=== PATIENT | female | born 1945 | race Caucasian/White ===

== ENCOUNTER 2016-10-15 17:22 | Observation (INO) | payer MEDICARE, OTHER ==
[~2016-10-15] VITALS: Ht 157.5 cm; Wt 103.8 kg
[2016-10-15 18:39] LABS: BASO % 0.3 % (0.0-2.0); EOS % 0.4 % (0-4.0); GRAN # 9.5 (1.4-6.5); GRAN % 85.5 % (42.2-75.2); HEMATOCRIT 28.8 % (37.0-47.0); HEMOGLOBIN 9.3 g/dl (12.5-16.0); LYMPH # 0.7 (1.2-3.4); LYMPH % 5.9 % (20.0-51.0); MEAN CELL VOLUME 92 fl (80.0-100.0); MEAN CORPUSCULAR HEMOGLOBIN 30 pg (27.0-31.0); MEAN CORPUSCULAR HGB CONC 32 g/dl (33.0-37.0); MEAN PLATELET VOLUME 10.2 fl (7.4-10.4); MONO # 0.7 (0.1-0.6); MONO % 6.6 % (1.7-9.3); PLATELET COUNT 143 K/mm3 (130-400); RED BLOOD COUNT 3.14 M/mm3 (4.10-5.30); REDCELL DISTRIBUTION WIDTH-CV 15.9 % (11.5-14.5); WHITE BLOOD COUNT 11.1 K/mm3 (4.8-10.8)
[2016-10-15 19:00] LABS: ADJUSTED CALCIUM 9.1 mg/dL (8.4-10.2); ALBUMIN 3.3 gm/dL (3.5-5.0); BILIRUBIN,TOTAL 1.4 mg/dL (0.0-1.0); CALCIUM 8.5 mg/dL (8.4-10.2); CREATININE, serum 1.47 mg/dL (0.52-1.25); POTASSIUM 3.3 mmol/L (3.4-5.0); TOTAL PROTEIN 6.4 gm/dL (6.4-8.2)
[2016-10-15 19:25] LABS: INR 2.2 (0.8-3.0); PROTHROMBIN TIME 24.6 SECONDS (9.7-12.8)
[2016-10-15 19:27] LABS: PARTIAL THROMBOPLASTIN TIME 41.2 SECONDS (26.0-37.0)
[2016-10-15] MEDS ORDERED: JANUVIA50 MG PO ×2 (20:04→20:47)
[2016-10-15] MEDS ORDERED: SYNTHROID 0.10.15 MG PO (20:04)
[2016-10-15] MEDS ORDERED: PERFOROMIS20 MCG/2 M IH (20:05)
[2016-10-15] MEDS ORDERED: ZOCOR 40MG40 MG PO (20:05)
[2016-10-15] MEDS ORDERED: COUMADIN 5MG5 MG/TAB PO (20:06)
[2016-10-15] MEDS ORDERED: LASIX 40MG TABL40 MG PO (20:39)
[2016-10-15] MEDS ORDERED: CARDIZEM CD 24240 MG PO (20:39)
[2016-10-15] MEDS ORDERED: NORCO 325 MG-51 TAB PO (20:40)
[2016-10-15] MEDS ORDERED: DOXYCYCLINE 50M50 MG PO (20:47)
[2016-10-15] MEDS ORDERED: AMITRIPTYLINE H10 M1 PO (20:48)
[2016-10-15] MEDS ORDERED: GLUCOTROL 5M5 MG/TAB PO (20:50)
[2016-10-15] MEDS ORDERED: DITROPAN XL 5MG5 M1 PO (21:11)
[2016-10-15] MEDS ORDERED: COZAAR 50MG50 MG/TAB PO (21:11)
[2016-10-15 21:35] LABS: MAGNESIUM 1.8 mg/dL (1.6-2.3)
[2016-10-15 22:13] VITALS: BP 151/56; PULSE 72; TEMP 98.1
[2016-10-15 22:19] LABS: PH 5 (5-8); SQUAMOUS EPITHELIAL 0-2 /hpf; URINE APPEARANCE Clear; URINE BACTERIA None Seen /hpf; URINE BILIRUBIN Negative (NEGATIVE); URINE BLOOD Negative (NEGATIVE); URINE COLOR Yellow; URINE GLUCOSE Negative (NEGATIVE); URINE KETONE Negative (NEGATIVE); URINE RBC 0-2 /hpf; URINE UROBILINOGEN Negative (NEGATIVE); URINE WBC 0-2 /hpf
[2016-10-16 04:24] VITALS: BP 149/51; PULSE 70; TEMP 98.4
[2016-10-16 07:15] LABS: MEAN CELL VOLUME 88 fl (80.0-100.0); MEAN CORPUSCULAR HGB CONC 33 g/dl (33.0-37.0); MEAN PLATELET VOLUME 10.5 fl (7.4-10.4); PLATELET COUNT 122 K/mm3 (130-400); RED BLOOD COUNT 3.17 M/mm3 (4.10-5.30); REDCELL DISTRIBUTION WIDTH-CV 15.5 % (11.5-14.5); WHITE BLOOD COUNT 6.5 K/mm3 (4.8-10.8)
[2016-10-16 07:27] LABS: ADD PATHOLOGY DIFF REVIEW NO; CALCIUM 8.1 mg/dL (8.4-10.2); CREATININE, serum 1.3 mg/dL (0.52-1.25); HEMOGLOBIN 9.2 g/dl (12.5-16.0); MEAN CORPUSCULAR HEMOGLOBIN 29 pg (27.0-31.0); POTASSIUM 3.9 mmol/L (3.4-5.0)
[2016-10-16 07:28] LABS: INR 2.7 (0.8-3.0); PROTHROMBIN TIME 30.3 SECONDS (9.7-12.8)
[2016-10-16 08:05] VITALS: BP 164/54; PULSE 80; TEMP 98.6
[2016-10-16 08:17] LABS: BAND 10 % (0-10); METAMYELOCYTE 3 % (0-0); NEUTROPHILS 66 % (42.0-75.2); PLATELET ESTIMATE NORMAL (NORMAL); TOTAL CELLS COUNTED 100
[2016-10-16 08:18] LABS: ANISOCYTOSIS 1+; OVALOCYTES 1+
[2016-10-16 12:08] VITALS: BP 134/45; PULSE 68; TEMP 97.8
[2016-10-16 16:01] VITALS: BP 142/51; PULSE 73; TEMP 97.9
[2016-10-16 20:34] VITALS: BP 163/56; PULSE 74; TEMP 98.7
[2016-10-17 00:26] VITALS: BP 152/54; PULSE 70; TEMP 98.7
[2016-10-17 03:35] VITALS: BP 162/58; PULSE 90; TEMP 98.4
[2016-10-17 06:37] LABS: BASO % 0.5 % (0.0-2.0); EOS # 0.2 (0.0-0.7); EOS % 2.8 % (0-4.0); GRAN # 3.7 (1.4-6.5); GRAN % 64.7 % (42.2-75.2); LYMPH # 1.2 (1.2-3.4); LYMPH % 20.4 % (20.0-51.0); MEAN CELL VOLUME 91 fl (80.0-100.0); MEAN CORPUSCULAR HGB CONC 32 g/dl (33.0-37.0); MONO # 0.6 (0.1-0.6); MONO % 11.1 % (1.7-9.3); PLATELET COUNT 119 K/mm3 (130-400); RED BLOOD COUNT 3.01 M/mm3 (4.10-5.30); REDCELL DISTRIBUTION WIDTH-CV 15.6 % (11.5-14.5); WHITE BLOOD COUNT 5.7 K/mm3 (4.8-10.8)
[2016-10-17 06:43] LABS: HEMATOCRIT 27.3 % (37.0-47.0); HEMOGLOBIN 8.8 g/dl (12.5-16.0); MEAN CORPUSCULAR HEMOGLOBIN 29 pg (27.0-31.0)
[2016-10-17 06:47] LABS: INR 2.6 (0.8-3.0); PROTHROMBIN TIME 29.3 SECONDS (9.7-12.8)
[2016-10-17 06:50] LABS: CREATININE, serum 1.2 mg/dL (0.52-1.25); POTASSIUM 3.8 mmol/L (3.4-5.0)
[2016-10-17 07:34] VITALS: BP 155/54; PULSE 72; TEMP 98.3
[2016-10-17] MEDS ORDERED: PULMICORT R1 MG/2 ML IH (09:42)
[2016-10-17] MEDS ORDERED: TRIAMCINOLONE A15 GM TP (09:42)
[2016-10-17] MEDS ORDERED: NORCO 325 MG-51 TAB PO (09:43)
[2016-10-17 10:05] VITALS: BP 155/54; PULSE 72; TEMP 98.3
== END 2016-10-17 10:10 ==
LOC: COL.ER 17:22 → MEDICAL 19:34
PROVIDERS: Emergency Medicine; Internal Medicine; Nurse Practitioner Family
DX: S32.050A Wedge compression fracture of fifth lumbar vertebra, initial encounter for closed fracture (principal); S00.03XA Contusion of scalp, initial encounter; E03.9 Hypothyroidism, unspecified; I48.2 Chronic atrial fibrillation; I12.9 Hypertensive chronic kidney disease with stage 1 through stage 4 chronic kidney disease, or unspecified chronic kidney disease; I87.2 Venous insufficiency (chronic) (peripheral); I89.0 Lymphedema, not elsewhere classified; J44.9 Chronic obstructive pulmonary disease, unspecified; E78.5 Hyperlipidemia, unspecified; E11.9 Type 2 diabetes mellitus without complications; E87.6 Hypokalemia; E66.9 Obesity, unspecified; F32.9 Major depressive disorder, single episode, unspecified; N18.6 End stage renal disease; M16.9 Osteoarthritis of hip, unspecified; D64.9 Anemia, unspecified; W19.XXXA Unspecified fall, initial encounter; Z87.891 Personal history of nicotine dependence; Z68.41 Body mass index [BMI] 40.0-44.9, adult; Z79.01 Long term (current) use of anticoagulants; Z79.84 Long term (current) use of oral hypoglycemic drugs; Z90.49 Acquired absence of other specified parts of digestive tract; Z82.49 Family history of ischemic heart disease and other diseases of the circulatory system; Y92.009 Unspecified place in unspecified non-institutional (private) residence as the place of occurrence of the external cause
CPT/HCPCS: G0378; G8978-GP; G8979-GP; G8987-GO; G8988-GO; J1815; J2543; J2765; J3010; J3370; J7040; J7050

== ENCOUNTER → 2017-01-14 | Outpatient (CLI) | payer MEDICARE, OTHER ==
[~2017-01-14] MED LIST: AMITRIPTYLINE H10 M1 PO; CARDIZEM CD 24240 MG PO; COUMADIN 5MG5 MG/TAB PO; COZAAR 50MG50 MG/TAB PO; DITROPAN XL 5MG5 M1 PO; DOXYCYCLINE 50M50 MG PO; GLUCOTROL 5M5 MG/TAB PO; JANUVIA50 MG PO; LASIX 40MG TABL40 MG PO; NORCO 325 MG-51 TAB PO; PERFOROMIS20 MCG/2 M IH; PULMICORT R1 MG/2 ML IH; SYNTHROID 0.10.15 MG PO; TRIAMCINOLONE A15 GM TP; ZOCOR 40MG40 MG PO
[2017-01-14 19:35] LABS: PH 5 (5-8); SQUAMOUS EPITHELIAL 0-2 /hpf; URINE APPEARANCE Clear; URINE BACTERIA None Seen /hpf; URINE BILIRUBIN Negative (NEGATIVE); URINE BLOOD Negative (NEGATIVE); URINE COLOR Yellow; URINE GLUCOSE Negative (NEGATIVE); URINE KETONE Negative (NEGATIVE); URINE RBC 0-2 /hpf; URINE UROBILINOGEN Negative (NEGATIVE); URINE WBC 0-2 /hpf
== END ==
LOC: ZCOL.LAB 18:30
PROVIDERS: Family Medicine
DX: R30.0 Dysuria (principal); R39.15 Urgency of urination

== ENCOUNTER 2017-06-01 17:10 | Inpatient (IN) | payer MEDICARE ==
[~2017-06-01] VITALS: Ht 160 cm; Wt 107.2 kg
[2017-06-01 17:33] VITALS: BP 151/59; PULSE 78; TEMP 98.6
[2017-06-01 19:55] LABS: BASO % 0.3 % (0.0-2.0); EOS # 0.1 (0.0-0.7); EOS % 0.8 % (0-4.0); GRAN # 4.9 (1.4-6.5); GRAN % 75.5 % (42.2-75.2); LYMPH # 0.9 (1.2-3.4); LYMPH % 13.5 % (20.0-51.0); MEAN CELL VOLUME 92 fl (80.0-100.0); MEAN CORPUSCULAR HGB CONC 33 g/dl (33.0-37.0); MEAN PLATELET VOLUME 9.5 fl (7.4-10.4); MONO # 0.6 (0.1-0.6); MONO % 9.4 % (1.7-9.3); PLATELET COUNT 131 K/mm3 (130-400); RED BLOOD COUNT 3.84 M/mm3 (4.10-5.30); REDCELL DISTRIBUTION WIDTH-CV 12.9 % (11.5-14.5)
[2017-06-01 19:56] LABS: HEMATOCRIT 35.3 % (37.0-47.0); HEMOGLOBIN 11.6 g/dl (12.5-16.0); MEAN CORPUSCULAR HEMOGLOBIN 30 pg (27.0-31.0)
[2017-06-01 20:04] VITALS: BP 148/61; PULSE 78; TEMP 97.2
[2017-06-01 20:04] LABS: CALCIUM 9.1 mg/dL (8.4-10.2); CREATININE, serum 1.17 mg/dL (0.52-1.25); POTASSIUM 4.3 mmol/L (3.4-5.0)
[2017-06-02 05:04] VITALS: BP 135/50; PULSE 76; TEMP 98.6
[2017-06-02] MEDS ORDERED: LIPITOR 10MG10 MG PO (08:24)
[2017-06-02] MEDS ORDERED: PRILOSEC 20MG20 MG PO (08:28)
[2017-06-02] MEDS ORDERED: SINGULAIR 110 MG/TAB PO (08:31)
[2017-06-02] MEDS ORDERED: COUMADIN 3MG3 MG/TAB PO (08:33)
[2017-06-02 08:38] LABS: BASO % 0.4 % (0.0-2.0); EOS # 0.1 (0.0-0.7); EOS % 2.5 % (0-4.0); GRAN # 3.4 (1.4-6.5); GRAN % 64.4 % (42.2-75.2); LYMPH # 1.2 (1.2-3.4); LYMPH % 22.3 % (20.0-51.0); MEAN CELL VOLUME 93 fl (80.0-100.0); MEAN CORPUSCULAR HGB CONC 32 g/dl (33.0-37.0); MEAN PLATELET VOLUME 9.6 fl (7.4-10.4); MONO # 0.5 (0.1-0.6); PLATELET COUNT 122 K/mm3 (130-400); RED BLOOD COUNT 3.36 M/mm3 (4.10-5.30)
[2017-06-02 08:41] LABS: HEMATOCRIT 31.2 % (37.0-47.0); HEMOGLOBIN 10.1 g/dl (12.5-16.0); MEAN CORPUSCULAR HEMOGLOBIN 30 pg (27.0-31.0)
[2017-06-02 08:47] LABS: CALCIUM 8.5 mg/dL (8.4-10.2); CREATININE, serum 1.15 mg/dL (0.52-1.25)
[2017-06-02] MEDS ORDERED: COUMADIN 6MG6 MG/TAB PO (08:48)
[2017-06-02] MEDS ORDERED: ZOCOR 40MG40 MG PO (08:48)
[2017-06-02 09:32] VITALS: BP 125/58; PULSE 76; TEMP 98.1
[2017-06-02] MEDS ORDERED: DOXYCYCLINE 10100 MG PO (09:32)
[2017-06-02 09:33] LABS: INR 2.9 (0.8-3.0); PROTHROMBIN TIME 34.8 SECONDS (9.7-12.8)
[2017-06-02] MEDS ORDERED: ARNUITY IH (09:34)
[2017-06-02] MEDS ORDERED: XALATAN EYE DROPS OD (09:35)
[2017-06-02] MEDS ORDERED: SENOKOT S 50 MG1 TAB PO (09:37)
[2017-06-02] MEDS ORDERED: TRUSOPT OCUMETE10 ML (09:38)
[2017-06-02] MEDS ORDERED: REFRESH TEARS 330 ML OP (09:38)
[2017-06-02] MEDS ORDERED: PROAIR RES117 MCG/Ac IH (10:16)
[2017-06-02] MEDS ORDERED: PULMICORT0.5 MG/2 M IH (10:28)
[2017-06-02] MEDS ORDERED: NORCO 325 MG-51 TAB PO (10:29)
[2017-06-02 13:39] VITALS: BP 126/52; PULSE 79; TEMP 98
[2017-06-02 17:38] VITALS: BP 128/43; PULSE 76; TEMP 97.7
[2017-06-02 22:04] VITALS: BP 124/56; PULSE 79; TEMP 98.2
[2017-06-03 06:23] VITALS: BP 139/56; PULSE 73; TEMP 97.8
[2017-06-03 06:49] LABS: BASO % 0.4 % (0.0-2.0); EOS # 0.2 (0.0-0.7); EOS % 3.8 % (0-4.0); GRAN # 2.7 (1.4-6.5); GRAN % 59.4 % (42.2-75.2); LYMPH # 1.2 (1.2-3.4); LYMPH % 26.2 % (20.0-51.0); MEAN CELL VOLUME 94 fl (80.0-100.0); MEAN CORPUSCULAR HGB CONC 32 g/dl (33.0-37.0); MEAN PLATELET VOLUME 9.7 fl (7.4-10.4); MONO # 0.5 (0.1-0.6); PLATELET COUNT 147 K/mm3 (130-400); RED BLOOD COUNT 3.62 M/mm3 (4.10-5.30); REDCELL DISTRIBUTION WIDTH-CV 12.9 % (11.5-14.5)
[2017-06-03 06:53] LABS: HEMATOCRIT 34.1 % (37.0-47.0); HEMOGLOBIN 10.9 g/dl (12.5-16.0); MEAN CORPUSCULAR HEMOGLOBIN 30 pg (27.0-31.0)
[2017-06-03 06:55] VITALS: BP 143/57; PULSE 75; TEMP 98.3
[2017-06-03 07:05] LABS: CALCIUM 8.7 mg/dL (8.4-10.2); CREATININE, serum 1.3 mg/dL (0.52-1.25); POTASSIUM 4.3 mmol/L (3.4-5.0)
[2017-06-03 07:32] LABS: PROTHROMBIN TIME 23.5 SECONDS (9.7-12.8)
[2017-06-03 11:20] VITALS: BP 132/58; PULSE 79; TEMP 97.8
[2017-06-03 13:13] VITALS: BP 124/47; PULSE 77; TEMP 97.8
[2017-06-03 17:04] VITALS: BP 129/50; PULSE 74; TEMP 98.6
[2017-06-03 22:15] VITALS: BP 143/62; PULSE 79; TEMP 98.6
[2017-06-04 02:12] VITALS: BP 132/45; PULSE 77; TEMP 98.6
[2017-06-04 05:18] VITALS: BP 134/47; PULSE 78; TEMP 98.1
[2017-06-04 07:11] LABS: BASO % 0.2 % (0.0-2.0); EOS # 0.2 (0.0-0.7); EOS % 3.4 % (0-4.0); GRAN # 2.9 (1.4-6.5); GRAN % 62.3 % (42.2-75.2); LYMPH # 1.1 (1.2-3.4); LYMPH % 22.8 % (20.0-51.0); MEAN CELL VOLUME 96 fl (80.0-100.0); MEAN CORPUSCULAR HGB CONC 32 g/dl (33.0-37.0); MEAN PLATELET VOLUME 10.1 fl (7.4-10.4); MONO # 0.5 (0.1-0.6); MONO % 10.9 % (1.7-9.3); PLATELET COUNT 128 K/mm3 (130-400); RED BLOOD COUNT 3.14 M/mm3 (4.10-5.30); REDCELL DISTRIBUTION WIDTH-CV 13.1 % (11.5-14.5)
[2017-06-04 07:13] LABS: INR 1.8 (0.8-3.0); PROTHROMBIN TIME 20.5 SECONDS (9.7-12.8)
[2017-06-04 07:21] LABS: C-REACTIVE PROTEIN 2.6 mg/dL (0.0-0.9); CALCIUM 8.4 mg/dL (8.4-10.2); CREATININE, serum 1.29 mg/dL (0.52-1.25); POTASSIUM 4.4 mmol/L (3.4-5.0)
[2017-06-04 07:31] LABS: HEMOGLOBIN 9.5 g/dl (12.5-16.0); MEAN CORPUSCULAR HEMOGLOBIN 30 pg (27.0-31.0)
[2017-06-04 10:00] VITALS: BP 139/59; PULSE 92; TEMP 99.4
[2017-06-04 13:59] VITALS: BP 123/48; PULSE 81; TEMP 98.1
[2017-06-04 17:43] VITALS: BP 116/52; PULSE 78; TEMP 98.7
[2017-06-04 22:23] VITALS: BP 112/41; PULSE 91; TEMP 97.8
[2017-06-05 02:00] VITALS: BP 134/54; PULSE 75; TEMP 98.3
[2017-06-05 05:08] VITALS: BP 149/63; PULSE 84; TEMP 97.9
[2017-06-05 07:02] LABS: BASO % 0.7 % (0.0-2.0); EOS # 0.2 (0.0-0.7); EOS % 4.2 % (0-4.0); GRAN # 2.7 (1.4-6.5); GRAN % 61.5 % (42.2-75.2); LYMPH % 22.7 % (20.0-51.0); MEAN CELL VOLUME 96 fl (80.0-100.0); MEAN CORPUSCULAR HGB CONC 31 g/dl (33.0-37.0); MEAN PLATELET VOLUME 9.6 fl (7.4-10.4); MONO # 0.5 (0.1-0.6); MONO % 10.4 % (1.7-9.3); PLATELET COUNT 139 K/mm3 (130-400); RED BLOOD COUNT 3.21 M/mm3 (4.10-5.30); REDCELL DISTRIBUTION WIDTH-CV 12.7 % (11.5-14.5)
[2017-06-05 07:31] LABS: HEMATOCRIT 30.9 % (37.0-47.0); HEMOGLOBIN 9.5 g/dl (12.5-16.0); MEAN CORPUSCULAR HEMOGLOBIN 30 pg (27.0-31.0)
[2017-06-05 07:40] LABS: CALCIUM 8.6 mg/dL (8.4-10.2); CREATININE, serum 1.3 mg/dL (0.52-1.25); POTASSIUM 4.4 mmol/L (3.4-5.0)
[2017-06-05 07:43] LABS: INR 1.7 (0.8-3.0); PROTHROMBIN TIME 19.7 SECONDS (9.7-12.8)
[2017-06-05 09:55] VITALS: BP 147/93; PULSE 75; TEMP 98
[2017-06-05] MEDS ORDERED: DOXYCYCLINE 10100 MG PO (09:57)
[2017-06-05] MEDS ORDERED: FLONASE NASAL S16 GM NS (09:58)
[2017-06-05] MEDS ORDERED: DESENEX TP (09:58)
== END 2017-06-05 13:35 | disposition home health service (06) | DRG 603 ==
LOC: SURG 17:10
PROVIDERS: Nurse Practitioner Family; Physician Assistant
DX: L03.116 Cellulitis of left lower limb (principal); Z68.41 Body mass index [BMI] 40.0-44.9, adult; L03.115 Cellulitis of right lower limb; E66.01 Morbid (severe) obesity due to excess calories; I12.9 Hypertensive chronic kidney disease with stage 1 through stage 4 chronic kidney disease, or unspecified chronic kidney disease; E11.22 Type 2 diabetes mellitus with diabetic chronic kidney disease; N18.3 Chronic kidney disease, stage 3 (moderate); I83.12 Varicose veins of left lower extremity with inflammation; I83.11 Varicose veins of right lower extremity with inflammation; I89.0 Lymphedema, not elsewhere classified; B95.4 Other streptococcus as the cause of diseases classified elsewhere; I48.0 Paroxysmal atrial fibrillation; Z79.01 Long term (current) use of anticoagulants; D64.9 Anemia, unspecified
CPT/HCPCS: 99223-AI; 99232-AI; 99233-AI; 99239; J0692; J0696; J1815; J2405; J3370; J7050

== ENCOUNTER → 2017-06-08 | Outpatient (CLI) | payer MEDICARE ==
[~2017-06-08] MED LIST changes: +ARNUITY IH; +COUMADIN 3MG3 MG/TAB PO; +COUMADIN 6MG6 MG/TAB PO; +DESENEX TP; +DOXYCYCLINE 10100 MG PO; +FLONASE NASAL S16 GM NS; +LIPITOR 10MG10 MG PO; +PRILOSEC 20MG20 MG PO; +PROAIR RES117 MCG/Ac IH; +PULMICORT0.5 MG/2 M IH; +REFRESH TEARS 330 ML OP; +SENOKOT S 50 MG1 TAB PO; +SINGULAIR 110 MG/TAB PO; +TRUSOPT OCUMETE10 ML; +XALATAN EYE DROPS OD
[2017-06-08 17:55] LABS: CALCIUM 8.9 mg/dL (8.4-10.2); CREATININE, serum 1.1 mg/dL (0.52-1.25); POTASSIUM 4.2 mmol/L (3.4-5.0)
[2017-06-08 17:57] LABS: MEAN CELL VOLUME 95 fl (80.0-100.0); MEAN CORPUSCULAR HGB CONC 31 g/dl (33.0-37.0); MEAN PLATELET VOLUME 9.7 fl (7.4-10.4); PLATELET COUNT 195 K/mm3 (130-400); RED BLOOD COUNT 3.67 M/mm3 (4.10-5.30); REDCELL DISTRIBUTION WIDTH-CV 13.2 % (11.5-14.5)
[2017-06-08 17:58] LABS: MEAN CORPUSCULAR HEMOGLOBIN 30 pg (27.0-31.0)
== END ==
LOC: ZCOL.LAB 17:37
PROVIDERS: Family Medicine
DX: N17.9 Acute kidney failure, unspecified (principal); D64.9 Anemia, unspecified

== ENCOUNTER 2018-07-16 15:28 | Inpatient (IN) | payer MEDICARE ==
[~2018-07-16] VITALS: Ht 162.6 cm; Wt 104.5 kg
[~2018-07-16 15:28] MED LIST changes: -COUMADIN 6MG6 MG/TAB PO; -GLUCOTROL 5M5 MG/TAB PO; +GLUCOTROL10 MG PO
[2018-07-16 16:29] LABS: BASO % 0.3 % (0.0-2.0); EOS % 0.3 % (0-4.0); GRAN # 2.2 (1.4-6.5); GRAN % 74.6 % (42.2-75.2); LYMPH # 0.3 (1.2-3.4); LYMPH % 11.4 % (20.0-51.0); MEAN CELL VOLUME 89 fl (80.0-100.0); MEAN CORPUSCULAR HEMOGLOBIN 29 pg (27.0-31.0); MEAN CORPUSCULAR HGB CONC 33 g/dl (33.0-37.0); MEAN PLATELET VOLUME 9.8 fl (7.4-10.4); MONO # 0.4 (0.1-0.6); MONO % 13.1 % (1.7-9.3); PLATELET COUNT 96 K/mm3 (130-400); RED BLOOD COUNT 3.78 M/mm3 (4.10-5.30); REDCELL DISTRIBUTION WIDTH-CV 13.4 % (11.5-14.5)
[2018-07-16 16:35] LABS: HEMATOCRIT 33.8 % (37.0-47.0)
[2018-07-16 16:48] LABS: ALANINE AMINOTRANSFERASE 25 U/L (9-52); ALBUMIN 3.6 gm/dL (3.5-5.0); ALKALINE PHOSPHATASE 85 U/L (50-136); ANION GAP 10 mmol/L (7-16); AST,SGOT 39 U/L (15-37); BILIRUBIN,TOTAL 0.5 mg/dL (0.0-1.0); BLOOD UREA NITROGEN 28 mg/dL (7-17); C-REACTIVE PROTEIN 4.5 mg/dL (0.0-0.9); CALCIUM 8.3 mg/dL (8.4-10.2); CARBON DIOXIDE 28 mmol/L (22-30); CHLORIDE 99 mmol/L (98-107); CREATININE, serum 1.29 mg/dL (0.52-1.25); GLUCOSE 85 mg/dL (74-106); POTASSIUM 3.4 mmol/L (3.4-5.0); SODIUM 137 mmol/L (137-145); TOTAL PROTEIN 6.7 gm/dL (6.4-8.2)
[2018-07-16 16:59] LABS: TROPONIN-I < 0.012 ng/mL (0.000-0.035)
--- NOTE | 2018-07-16 20:50 | NUR ---
PT ADMITTED TO FLOOR. SON AT BEDSIDE. PT PLEASENT AND COOPERATIVE WITH CARES. VOICED UNDERSTANDING ON RATIONALLE FOR DROPLETTE PRECATIONS DUE TO DX. HAS SOME C/O PAIN TO HIP, STATED THAT SHE HAS BONE ON BONE RUBING THAT CANT BE OPERATED ON THAT CHRONICLY CAUSES PAIN AND HAS PAIN MEDS PRN THAT SHE TAKES. WILL PROVIDE PAIN MED SOON MED ORDERS ARE COMPLETED. PT REQUESTING BREATHING TX, WILL CALL RT AND LET THEM KNOW.
[2018-07-16] MEDS ORDERED: CEPHALEXIN500 M1 PO (21:53)
[2018-07-16] MEDS ORDERED: LASIX 40MG TABL40 MG PO (21:57)
[2018-07-16] MEDS ORDERED: LIPITOR 10MG10 MG PO (22:10)
[2018-07-16] MEDS ORDERED: TRIAMC 0.1 454 TOP (22:16)
--- NOTE | 2018-07-17 | NUR ---
PT STATED THAT SHE HASNT SLEPT MUCH, HAS C/O PAIN TO DRESSINGS ON BILAT LEGS AND REQUESTED THIS NURSE CUT SOME OF THE COBAN OFF, STATED THAT IT WAS TOO TIGHT SHE COULDNT STAND THE PAIN. THIS NURSE DID TAKE CUT OFF THE COBAN, LEFT GAUZE TO AREA. PT STATED THAT THE PAIN HAD DEMINISHED AFTERWARD. INFORMED THIS NURSE THAT WHEN THE PROVIDER MAKES ROUNDS SHE WANTS THEM TO LOOK AT AREA OF LEG UNDER THE DRESSING TO ENSURE THAT IT DOESNT LOOK INFECTED.
[2018-07-17 00:13] LABS: INR 2.8 (0.8-3.0); PROTHROMBIN TIME 31.9 SECONDS (9.7-12.8)
[2018-07-17 00:15] VITALS: BP 151/47; PULSE 67; TEMP 98.6
[2018-07-17 04:52] VITALS: BP 155/50; PULSE 68; TEMP 99.1
[2018-07-17 07:44] VITALS: BP 159/54; PULSE 75; TEMP 97.9
--- NOTE | 2018-07-17 08:32 | NUR ---
Patient up to bathroom this AM. Patient had loose stool. Reports this has just started yesterday. Noted increased dyspnea with any movement. Patient ambulated with SBA. Lungs with expiratory/inspiratory wheezing with fine crackles in his bases. Patient reports productive cough. Given sputum cup to obtain specimen. Up in the chair and breakfast ordered. Recheck of blood sugar done. Noted to be 105
--- NOTE | 2018-07-17 10:06 | NUR ---
HIREN met with the patient to discuss a discharge plan. The patient lives in [place]. The patient receives services from [facility]. The patient uses a walker daily and has a cane. The patient's PCP is Dr. Gerald Jesus. The patient receives her prescriptions from [facility] and the patient reports no difficulties obtaining her medications. The patient does not have advanced directives in the EMR, but reports she does have them completed. HIREN sent updates to [facility]. The patient plans to return home upon discharge.
[2018-07-17 10:25] LABS: BASO % 0.4 % (0.0-2.0); EOS % 0.8 % (0-4.0); GRAN # 1.7 (1.4-6.5); GRAN % 63.7 % (42.2-75.2); LYMPH # 0.5 (1.2-3.4); LYMPH % 18.7 % (20.0-51.0); MEAN CELL VOLUME 92 fl (80.0-100.0); MEAN CORPUSCULAR HEMOGLOBIN 28 pg (27.0-31.0); MEAN CORPUSCULAR HGB CONC 31 g/dl (33.0-37.0); MEAN PLATELET VOLUME 10.3 fl (7.4-10.4); MONO # 0.4 (0.1-0.6); PLATELET COUNT 95 K/mm3 (130-400); RED BLOOD COUNT 3.53 M/mm3 (4.10-5.30); REDCELL DISTRIBUTION WIDTH-CV 13.4 % (11.5-14.5)
[2018-07-17 10:27] LABS: HEMATOCRIT 32.4 % (37.0-47.0)
[2018-07-17 10:43] LABS: ALBUMIN 3.4 gm/dL (3.5-5.0); BILIRUBIN,TOTAL 0.5 mg/dL (0.0-1.0); CREATININE, serum 1.15 mg/dL (0.52-1.25); POTASSIUM 4.2 mmol/L (3.4-5.0); TOTAL PROTEIN 6.2 gm/dL (6.4-8.2)
[2018-07-17 11:25] VITALS: BP 154/56; PULSE 69; TEMP 98.6
--- NOTE | 2018-07-17 11:28 | NUR ---
Patient sitting up in chair. Has moist sounding cough but non-productive. Reminder given to patient of need for sputum culture; patient voices understanding. Lunch orders. Accu check wnl. Patient has loose stool x 2 this AM. Reports that when she drinks juice first thing in the AM it causes loose stools. Reminder given for urine specimen
[2018-07-17 12:28] LABS: COLLECTION METHOD CLEAN CATCH
[2018-07-17 12:39] LABS: PH 6 (5-8); SQUAMOUS EPITHELIAL 0-2 /hpf; URINE APPEARANCE Clear; URINE BACTERIA None Seen /hpf; URINE BILIRUBIN Negative (NEGATIVE); URINE BLOOD 2+ (NEGATIVE); URINE COLOR Yellow; URINE GLUCOSE Negative (NEGATIVE); URINE KETONE Negative (NEGATIVE); URINE LEUKOCYTE ESTERASE Trace (NEGATIVE); URINE NITRATE Negative (NEGATIVE); URINE PROTEIN(semi-quant) Negative (NEGATIVE); URINE UROBILINOGEN Negative (NEGATIVE)
[2018-07-17 15:45] VITALS: BP 160/51; PULSE 75; TEMP 99.2
--- NOTE | 2018-07-17 18:12 | NUR ---
Patient resting in bed at this time. Ate Jello and sprite for supper. States she is feeling better but still having shortness of breathe with excertion. Requested breathing treatment. Call placed to RT regarding patient request. No other needs at this time
[2018-07-17 19:43] VITALS: BP 152/49; PULSE 77; TEMP 98.2
--- NOTE | 2018-07-17 22:00 | NUR ---
PT BLOOD SUGAR THIS HS WAS 297. THIS NURSE CONTACTED HOSPITALIST Hemal ROMERO AND ASKED FROM SOME INSULIN FOR PT. ORDER WAS OBTAINED FOR LOW DOSE SLIDING SCALE INSULIN ASPART. PT STATED THAT EVERYTIME SHE TAKES PREDNISONE SHE GETS HIGH BLOOD SUGARS AND USUALLY REQUIRES INSULIN FOR THE DURATION OF THE STEROID.
[2018-07-18 00:35] VITALS: BP 133/63; PULSE 85; TEMP 97.9
--- NOTE | 2018-07-18 00:44 | NUR ---
PT REMAINS HAVING ALOT OF DYSPNEA. STATES THAT SHE HAS TO REST EVERY TIME SHE MOVES FOR A DURATION OF TIME TO CATCH HER BREATH BEFORE SHE CAN DO ANYTHING ELSE. PT VEBALIZED TO THIS NURSE CONSERNS AND QUESTONING THE NEED FOR SOME REHAB WHILE IN THE HOSPITAL, AND WONDERED IF SHE WOULD QUALIFY FOR IPR. STATED THAT SHE KNOWS THAT SHE CANT RETURN HOME ALONE THE WAY SHE IS AND THAT IF SHE DID SHE WOULD MOST LIKELY HAVE TO RETURN TO THE HOSPITAL DUE TO HER INCREASE IN WEAKNESS.
--- NOTE | 2018-07-18 02:20 | NUR ---
PT STATED THAT SHE HASNT SLEPT TONIGHT AND FEELS AMPED UP FROM THE PEDNISONE AND FEELS JITTERY. HAD C/O DRY MOUTH AND SORE THROAT AND REQUESTED COUGH DROPS. ORDER OBTAINED FOR COUGH DROPS.
[2018-07-18 04:31] VITALS: BP 138/44; PULSE 66; TEMP 98
--- NOTE | 2018-07-18 07:15 | NUR ---
Bedside shift report received from EMMA Fam. PT in bed resting, c/o difficulty getting any rest last night. Refusing any prednisone today. Will notify Dr. Ren and continue to monitor.
[2018-07-18 10:13] VITALS: BP 148/48; PULSE 46; TEMP 99
--- NOTE | 2018-07-18 10:30 | NUR ---
Assessment charted. Pt resting in bed, refusing to get up with therapy today, states she feels "too weak". Refusing to take prednisone, and does not want to take "water pills tonight". Discussed need to take medications and purpose of prednisone but pt states she has idiosyncratic effect and becomes "too wired" to sleep on the medication. Pt refusing any PO intake. BLE are wrapped, no drainage noted. INT to R A/C. PRN pain med for R leg given. Will continue to monitor.
[2018-07-18 10:50] LABS: MEAN CELL VOLUME 88 fl (80.0-100.0); MEAN CORPUSCULAR HGB CONC 32 g/dl (33.0-37.0); MEAN PLATELET VOLUME 9.6 fl (7.4-10.4); PLATELET COUNT 99 K/mm3 (130-400); REDCELL DISTRIBUTION WIDTH-CV 13.2 % (11.5-14.5)
[2018-07-18 10:53] LABS: HEMATOCRIT 30.9 % (37.0-47.0); HEMOGLOBIN 9.9 g/dl (12.5-16.0); MEAN CORPUSCULAR HEMOGLOBIN 28 pg (27.0-31.0)
[2018-07-18 11:06] LABS: CALCIUM 8.3 mg/dL (8.4-10.2); CREATININE, serum 1.23 mg/dL (0.52-1.25); POTASSIUM 3.5 mmol/L (3.4-5.0)
[2018-07-18 11:08] LABS: INR 4.9 (0.8-3.0)
[2018-07-18 11:21] LABS: PROTHROMBIN TIME 55.3 SECONDS (9.7-12.8)
[2018-07-18 14:58] LABS: BAND 4 % (0-10); LYMPHOCYTE 18 % (20.0-51.0); NEUTROPHILS 60 % (42.0-75.2); PLATELET ESTIMATE DECREASED (NORMAL)
[2018-07-18 14:59] LABS: HYPOCHROMIA 1+
[2018-07-18 15:54] VITALS: BP 143/53; PULSE 75; TEMP 97.8
--- NOTE | 2018-07-18 17:30 | NUR ---
Pt has been resting in bed all day. Up to bathroom only one time per her request and she was able to ambulate SBA to bathroom and back with minimal SOB and assistance with getting feet back into bed. Otherwise is refusing to work with PT/OT and get out of bed. Refusing to take liquid in PO and refusing all food, refusing prednisone. Discussed tonights dose and pt states she is not willing to take tonights prednisone or lasix. Educated on need to take meds and nutrition for healing but refuses. Pt resting quietly in room, 02 at 1L NC. Denies any needs, will give bedside shift report to nightshift nurse who will resume care.
[2018-07-18 19:57] VITALS: BP 152/47; PULSE 74; TEMP 98.8
--- NOTE | 2018-07-18 20:30 | NUR ---
ASSESSMENT COMPLETE.PATIENT AAKE,A/OX3.C/O DISCOMFORT TO KNEES.EXP WHEEZES TO BILAT LUNGS.BREATHING EVEN AND UNLABORED.OXYGEN AT 1L/NC.BILAT LOWER EXTREMITIES DRSG CDI.ALL MEDS GIVEN.PT ON DROPLET PREC FOR INFLUENZA A.DENIES NEEDS AT THIS TIME.CALL LIGHT IN REACH
--- NOTE | 2018-07-18 23:49 | NUR ---
PT HAS INTERMITTENT COUGH.REMAINS ON DROPLET PRECAUTION FOR INFLENZA A.
[2018-07-19 00:02] VITALS: BP 157/55; PULSE 88; TEMP 98.8
[2018-07-19 05:11] VITALS: BP 151/48; PULSE 72; TEMP 97.9
--- NOTE | 2018-07-19 06:25 | NUR ---
PT HAS HAD AN UNEVENFUL NIGHT.SLEPT MOST OF THE NIGHT.COUGH WAS UNPRODUCTIVE.UNAMBLE TO COLLECT SPUTUM CX A RESULT.DENIES SOB.DENIES ANY NEEDS AT THIS TIME.CALL LIGHT IN REACH
[2018-07-19 06:29] LABS: BASO % 0.2 % (0.0-2.0); EOS % 0.2 % (0-4.0); GRAN # 2.6 (1.4-6.5); LYMPH # 1.1 (1.2-3.4); MEAN CELL VOLUME 90 fl (80.0-100.0); MEAN CORPUSCULAR HGB CONC 32 g/dl (33.0-37.0); MEAN PLATELET VOLUME 9.7 fl (7.4-10.4); MONO # 0.4 (0.1-0.6); MONO % 10.1 % (1.7-9.3); PLATELET COUNT 96 K/mm3 (130-400); REDCELL DISTRIBUTION WIDTH-CV 13.2 % (11.5-14.5)
[2018-07-19 06:43] LABS: HEMATOCRIT 30.7 % (37.0-47.0); HEMOGLOBIN 9.7 g/dl (12.5-16.0); MEAN CORPUSCULAR HEMOGLOBIN 29 pg (27.0-31.0)
[2018-07-19 06:54] LABS: CREATININE, serum 1.22 mg/dL (0.52-1.25); POTASSIUM 3.1 mmol/L (3.4-5.0)
[2018-07-19 07:04] LABS: PROTHROMBIN TIME 63.8 SECONDS (9.7-12.8)
[2018-07-19 07:05] LABS: INR 5.6 (0.8-3.0)
[2018-07-19 08:14] VITALS: BP 144/51; PULSE 77; TEMP 98.3
--- NOTE | 2018-07-19 08:45 | NUR ---
Pt lying in bed with eyes closed, awakens to verbal stimuli. Pt breathing sounds very wet, and wheezes were auscultated on exp/insp. Pt denies any pain. Pt has dressings to lower legs, pt states it is for cellulitis and that they are changed [place] [facility] [place] Mondays and Fridays. Will follow up. Call light in reach.
[2018-07-19 11:55] VITALS: BP 148/70; PULSE 74; TEMP 98.7
--- NOTE | 2018-07-19 11:56 | NUR ---
SW met with patient after clinical rounds about discharge plan. Originally patient was wanting to go home with home health but patient reports she would feel more comfortable going to a SNF for rehab. Patient chose 1. [facility] and 2. [facility]. SW faxed referral to both facilities.
--- NOTE | 2018-07-19 15:00 | NUR ---
Dressings changed to bilateral lower extremities. Chad-impregnated gauze (per pt) and coban removed, skin beneath is intact, edematous, with rough bumpy texture. Open lesion to superior lateral/anterior alvarado with fresh blood and small amount of purulent drainage. Silver-impregnated gauze placed over this open area, then bilat legs wrapped in gauze and coban. Pt tolerated well.
[2018-07-19 17:00] VITALS: BP 126/41; PULSE 81; TEMP 97.6
--- NOTE | 2018-07-19 17:00 | NUR ---
Changed dressing to bilateral lowers legs. Wrapped with gauze and coban. On left leg, open wound size of a half dollar with some yellow exudate. Pt denies any pain.
--- NOTE | 2018-07-19 18:30 | NUR ---
Pt assisted back to bed, with detour to bathroom to void standby assistance provided pt stable with walker. Pt denies needs, settled into bed with oxygen applied per orders at 2 L via NC.
--- NOTE | 2018-07-19 19:00 | NUR ---
Report received from EMMA Kate
[2018-07-19 21:01] VITALS: BP 146/48; PULSE 82; TEMP 99
--- NOTE | 2018-07-19 21:20 | NUR ---
Resting in bed. Assessment complete. Lungs sounds wheezing on expiration. Heart sounds normal. Bowels active x4. Weak pulses to feet bilateral with +1 edema present. Several bruises to bilateral arms. Denies pain. Denies needs at this time. INT to right AC discontinued and placed in right wrist by EMMA Ayala. Call light in reach.
[2018-07-20] VITALS (7 sets, daily range): BP systolic 136–164; BP diastolic 43–71; PULSE 63–83; TEMP 97.9–99
--- NOTE | 2018-07-20 00:49 | NUR ---
Resting in bed. INT in right AC removed at this time. Denies needs. Call light in reach. Assisted with repositioning in bed.
--- NOTE | 2018-07-20 04:15 | NUR ---
Resting in bed. Incontinent of urine. Care provided. Denies pain. Denies needs. Call light in reach.
[2018-07-20 06:31] LABS: MEAN CELL VOLUME 89 fl (80.0-100.0); MEAN CORPUSCULAR HGB CONC 32 g/dl (33.0-37.0); MEAN PLATELET VOLUME 9.8 fl (7.4-10.4); PLATELET COUNT 101 K/mm3 (130-400); RED BLOOD COUNT 3.49 M/mm3 (4.10-5.30); REDCELL DISTRIBUTION WIDTH-CV 13.2 % (11.5-14.5)
--- NOTE | 2018-07-20 06:33 | NUR ---
Resting in recliner this AM. Requested [place] PRN throughout night for cough. Otherwise uneventful night. Denies needs. Call light in reach.
[2018-07-20 06:38] LABS: CALCIUM 8.1 mg/dL (8.4-10.2); CREATININE, serum 1.22 mg/dL (0.52-1.25); HEMATOCRIT 31.1 % (37.0-47.0); HEMOGLOBIN 9.9 g/dl (12.5-16.0); MEAN CORPUSCULAR HEMOGLOBIN 28 pg (27.0-31.0); POTASSIUM 3.9 mmol/L (3.4-5.0)
[2018-07-20 06:44] LABS: INR 5.8 (0.8-3.0); PROTHROMBIN TIME 66.2 SECONDS (9.7-12.8)
--- NOTE | 2018-07-20 06:48 | NUR ---
Report given to EMMA Ignacio.
--- NOTE | 2018-07-20 07:10 | NUR ---
report received from EMMA Howard
[2018-07-20 09:06] LABS: LYMPHOCYTE 17 % (20.0-51.0); NEUTROPHILS 74 % (42.0-75.2); PLATELET ESTIMATE DECREASED (NORMAL)
--- NOTE | 2018-07-20 11:17 | NUR ---
SW attended clinical rounds. Patient has been accepted to [facility] for skilled. Patient will not discharge today but maybe tomorrow.
--- NOTE | 2018-07-20 11:55 | NUR ---
Assessmnet complete.patient awake,sitting in recliner.breathing even and unlabored.dypneic with exertion.Exp wheezes auscultated to bilat lungs throughout.oxygen at 2L/Nc.VSS.PT/OT following.meds changed when doctor rounded this morning.Pulmonary consult called to .remains on droplet precaution for Infleunza A.Dressing to bilat lower extremities are CDI.will continue to monitor.
--- NOTE | 2018-07-20 12:03 | NUR ---
Marisol-student Nurse assisting with patient cares today.
--- NOTE | 2018-07-20 12:21 | NUR ---
Reported onto EMMA Lovegraphite disk assembler completed. VSS. Breath sounds coarse peripheral wheezes, no SOB at rest. O2 at 2L NC. Productive cough, pale yellow sputum. INT to R wrist, no phlebitis or discomfort. Bilateral pedal edema 3+, dressings bilateral lower extremitites. Pt reports pain 5/10 to RLE, CMS checks WNL. VSS. Assessment unchanged. Encouraged IS use (500ml) Voices no acute concerns at this time. Reported off to EMMA Love.
--- NOTE | 2018-07-20 12:39 | NUR ---
VIT K infusing at this time.patient eating lunch.denies any concerns.will monitor per orders.
--- NOTE | 2018-07-20 19:51 | NUR ---
REPORT GIVEN TO EMMA PARIKH
--- NOTE | 2018-07-20 22:45 | NUR ---
Resting in recliner. Assessment complete. Bases bilaterally coarse, otherwise clear. Hear sounds normal. Bowels active x4. Bilateral lower leg edema. Dressings present, gauze and coban-clean, dry, and intact. INT site to right wrist free of complications. Bruising present to bilateral upper extremities. Erythema, nonblanchable to buttocks. Patient educated on repositioning. Reports 5/10 pain in legs. Requested PRN norco. Provided to patient. Denies other needs at this time. Call light in reach. Will monitor.
--- NOTE | 2018-07-21 02:21 | NUR ---
APPROXIMATELY 3 BREATHS INTO TX PATIENT STATED THAT SHE WAS NOT ABLE TO TAKE THE TX, IT WAS MAKING HER NAUSEAUS.
--- NOTE | 2018-07-21 03:10 | NUR ---
Resting in recliner. States feel well, slept well. Denies needs. Call light in reach.
[2018-07-21 03:58] VITALS: BP 119/37; PULSE 86; TEMP 98.9
--- NOTE | 2018-07-21 06:00 | NUR ---
Resting in recliner this AM. Denies needs. Call light in reach.
[2018-07-21 06:41] LABS: GRAN # 2.3 (1.4-6.5); GRAN % 84.4 % (42.2-75.2); HEMOGLOBIN 10.1 g/dl (12.5-16.0); LYMPH # 0.3 (1.2-3.4); MEAN CELL VOLUME 89 fl (80.0-100.0); MEAN CORPUSCULAR HEMOGLOBIN 28 pg (27.0-31.0); MEAN CORPUSCULAR HGB CONC 32 g/dl (33.0-37.0); MONO # 0.1 (0.1-0.6); MONO % 2.9 % (1.7-9.3); PLATELET COUNT 108 K/mm3 (130-400); RED BLOOD COUNT 3.56 M/mm3 (4.10-5.30); REDCELL DISTRIBUTION WIDTH-CV 12.8 % (11.5-14.5)
[2018-07-21 06:45] LABS: HEMATOCRIT 31.5 % (37.0-47.0)
[2018-07-21 06:46] LABS: INR 1.4 (0.8-3.0); PROTHROMBIN TIME 15.8 SECONDS (9.7-12.8)
[2018-07-21 06:57] LABS: CALCIUM 8.2 mg/dL (8.4-10.2); CREATININE, serum 1.21 mg/dL (0.52-1.25); POTASSIUM 4.5 mmol/L (3.4-5.0)
--- NOTE | 2018-07-21 07:00 | NUR ---
Reported onto EMMA Ignacio. A&Ox4. VSS. Assesment complete. Breath sounds coars with peripheral wheezes, O2 at 95% with 3L NC. SOB on exertion w/ movement. Productive cough, pale yellow thick sputum. INT to right wrist, no phlebitis/infiltration. Bilateral pitting edema- lower extremities, 3+. Bileral lower extrimity dressing, CDI. pt reports pain 5/10 on a scale of 0-10, aching at right hip.
--- NOTE | 2018-07-21 07:30 | NUR ---
received report from EMMA Howard.
--- NOTE | 2018-07-21 07:47 | NUR ---
Report given to Sandee CARTER. Patient had uneventful night. Resting in recliner this AM. Denies needs. Call light in reach.
[2018-07-21 08:44] VITALS: BP 123/55; PULSE 72; TEMP 98.3
--- NOTE | 2018-07-21 09:18 | NUR ---
Marisol-Student Nurse assissting with patient cares for part of this shift.
--- NOTE | 2018-07-21 09:40 | NUR ---
Pain pill administered at 0845, no complaints/discomfort. Gauze dressing to bilateral lower extremities, CDI. [facility] checks WNL.
--- NOTE | 2018-07-21 09:43 | NUR ---
patient dressings to lower extremities dressings re-enfored.looks red.patient reports norco was effective.will continue to monitor.call light in reach
--- NOTE | 2018-07-21 10:00 | NUR ---
Assessment complete.patient awake,sitting up in recliner.oxygen at 2L/nc.c/o discomfort to lower estremities.rates pain at 5/10.prn given by student nurse.patient lungs diminised to upper lobes and exp wheezes to lower lobes.Assist X1 with cares.bruises noted to bilat upper extremities.drsg to BLE CDI.denies any needs at this time.will continue to monitor.call light in reach
--- NOTE | 2018-07-21 10:30 | NUR ---
Encouraged use of IS (1000ml), pt tolerates activity well. Reported off to EMMA Ignacio.
[2018-07-21] MEDS ORDERED: IPRATROPIUM BROM3 M1 IH (10:34)
[2018-07-21] MEDS ORDERED: NORCO 325 MG-51 TAB PO (10:35)
[2018-07-21] MEDS ORDERED: TYLENOL 325MG325 MG PO (10:35)
[2018-07-21] MEDS ORDERED: HALLS9.1 MG MM (10:36)
[2018-07-21] MEDS ORDERED: MELATIN 3 MG-11 TAB PO (10:37)
[2018-07-21] MEDS ORDERED: PREDNISONE10 MG PO (10:38)
[2018-07-21] MEDS ORDERED: COUMADIN4 MG PO (10:42)
--- NOTE | 2018-07-21 10:47 | NUR ---
SW attended clinical rounds. Patient will discharge today to [facility] for alf, PT and OT. SW presented IM to patient. She signed but did not request a copy. HIREN will arrange transportation and fax discharge orders.
--- NOTE | 2018-07-21 12:00 | NUR ---
This RN reviewed student nurses documentation and agrees with findings.
--- NOTE | 2018-07-21 14:38 | NUR ---
patient discharge to [facility].report called to EMMA Chand.all belongings and paperwork given to patient and [facility] auto parts delivery driver.IV discontinued.all questions answered.This RN escorted patient out.
== END 2018-07-21 14:52 | DRG 194 ==
LOC: COL.ER 15:28 → MEDICAL 18:30
PROVIDERS: Emergency Medicine; Family Medicine; Hospitalist; Nurse Practitioner; Physician Assistant; ADMIT Internal Medicine
DX: J09.X2 Influenza due to identified novel influenza A virus with other respiratory manifestations (principal); J44.1 Chronic obstructive pulmonary disease with (acute) exacerbation; D61.818 Other pancytopenia; J90 Pleural effusion, not elsewhere classified; D68.9 Coagulation defect, unspecified; Z66 Do not resuscitate; I12.9 Hypertensive chronic kidney disease with stage 1 through stage 4 chronic kidney disease, or unspecified chronic kidney disease; E11.22 Type 2 diabetes mellitus with diabetic chronic kidney disease; N18.3 Chronic kidney disease, stage 3 (moderate); E66.01 Morbid (severe) obesity due to excess calories; I48.0 Paroxysmal atrial fibrillation; Z68.39 Body mass index [BMI] 39.0-39.9, adult; I25.10 Atherosclerotic heart disease of native coronary artery without angina pectoris; I87.2 Venous insufficiency (chronic) (peripheral); I89.0 Lymphedema, not elsewhere classified; Z79.01 Long term (current) use of anticoagulants; D64.9 Anemia, unspecified; E03.9 Hypothyroidism, unspecified; D69.6 Thrombocytopenia, unspecified; E11.65 Type 2 diabetes mellitus with hyperglycemia; E87.6 Hypokalemia; F03.90 Unspecified dementia, unspecified severity, without behavioral disturbance, psychotic disturbance, mood disturbance, and anxiety
CPT/HCPCS: OP; 99232-AI; 99239; A9284; G0378; J1815; J2920; J3430; J7030; J7512

== ENCOUNTER → 2018-08-19 | Outpatient (REF) ==
[~2018-08-19] MED LIST changes: +CEPHALEXIN500 M1 PO; +COUMADIN4 MG PO; +HALLS9.1 MG MM; +IPRATROPIUM BROM3 M1 IH; +MELATIN 3 MG-11 TAB PO; +PREDNISONE10 MG PO; +TRIAMC 0.1 454 TOP; +TYLENOL 325MG325 MG PO
== END ==
LOC: ZCOL.LAB 15:22
DX: R06.02 Shortness of breath (principal)

== ENCOUNTER → 2018-11-11 | Outpatient (CLI) | payer MEDICARE, OTHER | LOC: COL.VAS 11:51 | DX: J44.9 Chronic obstructive pulmonary disease, unspecified (principal); I08.0 Rheumatic disorders of both mitral and aortic valves; I87.1 Compression of vein ==

== ENCOUNTER 2018-12-18 10:36 | Emergency (ER) | payer MEDICARE, OTHER ==
[~2018-12-18] VITALS: Ht 160 cm; Wt 94.1 kg
[2018-12-18 10:48] VITALS: TEMP 98.1
[2018-12-18] MEDS ORDERED: AMOXICILLIN875 MG PO ×2 (11:11)
[2018-12-18 11:28] LABS: COLLECTION METHOD CLEAN CATCH
[2018-12-18 11:34] LABS: MUCOUS Present /lpf; PH 6 (5-8); SQUAMOUS EPITHELIAL 0-2 /hpf; URINE APPEARANCE Clear; URINE BACTERIA None Seen /hpf; URINE BILIRUBIN Negative (NEGATIVE); URINE BLOOD 1+ (NEGATIVE); URINE COLOR Straw; URINE GLUCOSE Negative (NEGATIVE); URINE KETONE Negative (NEGATIVE); URINE LEUKOCYTE ESTERASE Negative (NEGATIVE); URINE NITRATE Negative (NEGATIVE); URINE PROTEIN(semi-quant) Negative (NEGATIVE); URINE RBC 0-2 /hpf; URINE UROBILINOGEN Negative (NEGATIVE)
[2018-12-18 12:29] LABS: BASO % 0.2 % (0.0-2.0); EOS % 0.5 % (0-4.0); GRAN % 68.7 % (42.2-75.2); HEMOGLOBIN 11.2 g/dl (12.5-16.0); LYMPH # 1.1 (1.2-3.4); LYMPH % 19.8 % (20.0-51.0); MEAN CELL VOLUME 87 fl (80.0-100.0); MEAN CORPUSCULAR HEMOGLOBIN 28 pg (27.0-31.0); MEAN CORPUSCULAR HGB CONC 33 g/dl (33.0-37.0); MEAN PLATELET VOLUME 9.3 fl (7.4-10.4); MONO # 0.6 (0.1-0.6); MONO % 9.9 % (1.7-9.3); PLATELET COUNT 147 K/mm3 (130-400); RED BLOOD COUNT 3.95 M/mm3 (4.10-5.30); REDCELL DISTRIBUTION WIDTH-CV 13.1 % (11.5-14.5)
[2018-12-18 12:32] LABS: INR 1.8 (0.8-3.0)
[2018-12-18 12:33] LABS: HEMATOCRIT 34.4 % (37.0-47.0)
[2018-12-18 12:34] LABS: PARTIAL THROMBOPLASTIN TIME 36.9 SECONDS (26.0-37.0)
[2018-12-18 12:50] LABS: ALANINE AMINOTRANSFERASE 28 U/L (9-52); ALBUMIN 3.8 gm/dL (3.5-5.0); ALKALINE PHOSPHATASE 83 U/L (50-136); ANION GAP 9 mmol/L (7-16); AST,SGOT 20 U/L (15-37); BILIRUBIN,TOTAL 0.8 mg/dL (0.0-1.0); BLOOD UREA NITROGEN 37 mg/dL (7-17); CARBON DIOXIDE 26 mmol/L (22-30); CHLORIDE 102 mmol/L (98-107); CREATININE, serum 1.01 (0.52-1.25); GLUCOSE 189 mg/dL (74-106); POTASSIUM 4.1 mmol/L (3.4-5.0); SODIUM 137 mmol/L (137-145); TOTAL PROTEIN 6.5 gm/dL (6.4-8.2)
[2018-12-18 12:52] LABS: C-REACTIVE PROTEIN < 0.5 mg/dL (0.0-0.9)
[2018-12-18 13:00] LABS: TROPONIN-I < 0.012 ng/mL (0.000-0.035)
[2018-12-18] MEDS ORDERED: AMOXICILLIN 8751 TAB PO (14:04)
[2018-12-18 14:49] VITALS: BP 181/75; PULSE 70
== END 2018-12-18 14:49 | disposition home or self-care (01) ==
LOC: COL.ER 10:36
PROVIDERS: Physician Assistant
DX: J18.1 Lobar pneumonia, unspecified organism (principal); R42 Dizziness and giddiness; J44.9 Chronic obstructive pulmonary disease, unspecified; I12.9 Hypertensive chronic kidney disease with stage 1 through stage 4 chronic kidney disease, or unspecified chronic kidney disease; E11.22 Type 2 diabetes mellitus with diabetic chronic kidney disease; N18.4 Chronic kidney disease, stage 4 (severe); I48.91 Unspecified atrial fibrillation; I25.10 Atherosclerotic heart disease of native coronary artery without angina pectoris; Z88.2 Allergy status to sulfonamides; Z79.01 Long term (current) use of anticoagulants; Z79.51 Long term (current) use of inhaled steroids

== ENCOUNTER 2019-12-09 13:45 | Inpatient (IN) | payer MEDICARE, OTHER ==
[~2019-12-09] VITALS: Ht 160 cm; Wt 99.1 kg
[~2019-12-09 13:45] MED LIST changes: +AMOXICILLIN 8751 TAB PO; +AMOXICILLIN875 MG PO
[2019-12-09 14:30] LABS: BASO % 0.4 % (0.0-2.0); EOS # 0.1 (0.0-0.7); EOS % 2.6 % (0-4.0); GRAN # 3.7 (1.4-6.5); GRAN % 68.5 % (42.2-75.2); HEMOGLOBIN 10.3 g/dl (12.5-16.0); LYMPH % 17.8 % (20.0-51.0); MEAN CELL VOLUME 85 fl (80.0-100.0); MEAN CORPUSCULAR HEMOGLOBIN 28 pg (27.0-31.0); MEAN CORPUSCULAR HGB CONC 33 g/dl (33.0-37.0); MEAN PLATELET VOLUME 9.6 fl (7.4-10.4); MONO # 0.6 (0.1-0.6); MONO % 10.3 % (1.7-9.3); PLATELET COUNT 131 K/mm3 (130-400); RED BLOOD COUNT 3.66 M/mm3 (4.10-5.30); REDCELL DISTRIBUTION WIDTH-CV 14.7 % (11.5-14.5)
[2019-12-09 14:31] LABS: HEMATOCRIT 31.2 % (37.0-47.0)
[2019-12-09 14:42] LABS: ALANINE AMINOTRANSFERASE 17 U/L (4-34); ALKALINE PHOSPHATASE 108 U/L (50-136); ANION GAP 11 mmol/L (7-16); AST,SGOT 19 U/L (15-37); BILIRUBIN,TOTAL 0.9 mg/dL (0.0-1.0); BLOOD UREA NITROGEN 45 mg/dL (7-17); C-REACTIVE PROTEIN < 0.5 mg/dL (0.0-0.9); CALCIUM 9.1 mg/dL (8.4-10.2); CARBON DIOXIDE 26 mmol/L (22-30); CHLORIDE 91 mmol/L (98-107); CREATININE, serum 1.51 (0.52-1.25); GLUCOSE 137 mg/dL (74-106); POTASSIUM 3.8 mmol/L (3.4-5.0); SODIUM 128 mmol/L (137-145); TOTAL PROTEIN 7.2 gm/dL (6.4-8.2)
[2019-12-09 14:51] LABS: TROPONIN-I < 0.012 ng/mL (0.000-0.035)
[2019-12-09 15:52] LABS: COLLECTION METHOD CLEAN CATCH
[2019-12-09 16:05] LABS: MUCOUS Present /lpf; PH 7 (5-8); SQUAMOUS EPITHELIAL 0-2 /hpf; URINE APPEARANCE Clear; URINE BACTERIA None Seen /hpf; URINE BILIRUBIN Negative (NEGATIVE); URINE BLOOD Negative (NEGATIVE); URINE COLOR Straw; URINE GLUCOSE Negative (NEGATIVE); URINE KETONE Negative (NEGATIVE); URINE LEUKOCYTE ESTERASE Negative (NEGATIVE); URINE NITRATE Negative (NEGATIVE); URINE PROTEIN(semi-quant) Negative (NEGATIVE); URINE RBC 0-2 /hpf; URINE UROBILINOGEN Negative (NEGATIVE)
[2019-12-09 16:39] LABS: INR 1.5 (0.8-3.0); PROTHROMBIN TIME 16.4 SECONDS (9.7-12.8)
[2019-12-09] MEDS ORDERED: CALCIUM 600MG+D1 TAB PO (17:02)
[2019-12-09] MEDS ORDERED: K-DUR 10 MEQ T10 MEQ PO (17:03)
[2019-12-09] MEDS ORDERED: HUMALOG100 U/ML SQ (17:04)
[2019-12-09] MEDS ORDERED: DIFLUCAN 100MG100 MG PO (17:04)
[2019-12-09] MEDS ORDERED: BENADRYL25 M2 PO (17:05)
[2019-12-09] MEDS ORDERED: NOVOLIN N100 UNIT/1 SQ (17:06)
[2019-12-09] MEDS ORDERED: PROAIR HFA0.09 MG/AC IH (17:07)
[2019-12-09] MEDS ORDERED: ZAROXOLYN 2.52.5 MG PO (17:09)
[2019-12-09] MEDS ORDERED: CEPHALEXIN500 M1 (17:09)
[2019-12-09 20:07] VITALS: BP 154/46; PULSE 73; TEMP 98.9
--- NOTE | 2019-12-09 21:00 | NUR ---
Admission assessment completed. Med rec unable to be completed at this time due to patient not managing own medications. Will call pt's son in AM to complete med rec. Inspiratory and expiratory wheezes heard over all ren. Pt reports feeling of "pressure" and "fullness" in abdomen, reports discomfort but denies pain. 2+ pitting edema noted in BLE. BLE reddened and covered in blister-like sores. Open blisters on BLE near outsides of knees. Abdomen firm and distended, mild pitting edema noted over abdomen. White sore and blanchable redness noted on pt's coccyx, barrier ointment applied. INT to left AC intact and flushes easily.
--- NOTE | 2019-12-09 21:57 | NUR ---
Vancomycin Initial Dosing Pharmacy Note Ordering provider: Loli Finley MD Indication/duration: BILATERAL LEG CELLULITIS Relevant comorbidities: LABS: WBC = 5.3, SCr = 1.51 Recommendation: Obtaining troughs and will follow levels. Loading dose: 1.5 grams Maintenance dose: 1 gram every 24 hours Trough goal: 10-15 ug/mL
[2019-12-10] VITALS (8 sets, daily range): BP systolic 93–142; BP diastolic 46–86; PULSE 59–77; TEMP 97.8–98.6
--- NOTE | 2019-12-10 05:18 | NUR ---
Pt has been up in chair throughout night. States this is normal for her to sit up in chair with little sleep. Wound cultures collected and sent to lab. PO and IV antibiotics administered as ordered. IV Lasix administered per orders. PureWick placed. Feet elevated.
[2019-12-10 07:20] LABS: BASO % 0.5 % (0.0-2.0); EOS # 0.3 (0.0-0.7); EOS % 4.6 % (0-4.0); GRAN # 3.8 (1.4-6.5); GRAN % 64.8 % (42.2-75.2); HEMOGLOBIN 10.3 g/dl (12.5-16.0); LYMPH # 1.1 (1.2-3.4); LYMPH % 18.4 % (20.0-51.0); MEAN CELL VOLUME 86 fl (80.0-100.0); MEAN CORPUSCULAR HEMOGLOBIN 29 pg (27.0-31.0); MEAN CORPUSCULAR HGB CONC 33 g/dl (33.0-37.0); MEAN PLATELET VOLUME 9.9 fl (7.4-10.4); MONO # 0.7 (0.1-0.6); MONO % 11.2 % (1.7-9.3); PLATELET COUNT 146 K/mm3 (130-400); RED BLOOD COUNT 3.59 M/mm3 (4.10-5.30); REDCELL DISTRIBUTION WIDTH-CV 14.7 % (11.5-14.5)
[2019-12-10 07:33] LABS: HEMATOCRIT 30.9 % (37.0-47.0)
[2019-12-10 07:40] LABS: INR 1.7 (0.8-3.0); PROTHROMBIN TIME 18.6 SECONDS (9.7-12.8)
[2019-12-10 07:44] LABS: CALCIUM 8.9 mg/dL (8.4-10.2); CHOLESTEROL RISK RATIO 1.9; CREATININE, serum 1.3 (0.52-1.25); POTASSIUM 3.4 mmol/L (3.4-5.0)
--- NOTE | 2019-12-10 09:42 | NUR ---
Warfarin Initial Dosing Pharmacy Note Ordering Provider: Loli Finley MD Indication: Atrial fibrillation LABS: INR 1.7 <- 1.5 (12/09/19) Recommendation: Continue home regimen of Warfarin 4 mg po qHS. Pharmacy will continue to monitor daily INR levels. Home Regimen: Warfarin 4 mg po qHS
--- NOTE | 2019-12-10 14:14 | NUR ---
Plan: Return home with Home health with [facility]. Assessment: SW met with patient about care plan. Patient reports that she has nursing coming in twice a week and someone for cleaning. Patient reports that she may need more assistance. Patient reports that her PCP is Dr. Jesus and her son picks up her medications. Client reports recently havng fever and chills. Patient reports that she has a walker and lift chair at home. Patient reports that she uses [facility] on [address] for RX. Patient denies having a POA but does have a Living will. Action: SW will continue to follow for additional level of care.
--- NOTE | 2019-12-10 18:22 | NUR ---
Patient is alert and oriented. BLE, Back pain at 5/10. re-dressed LLE wound and wrapped leg to manage edema. patient continue to produce adequate urine >2000ml on this shift. Blood and wound culture pending. Son not reachable today to help clarify home medication and current homehealth patient have. patient said she refuse to ambulate with PT today because she was too weak. patient resting in chair. she refuse to get on the bed through shift - patient state "chair is more comfortable. Purewick in place to help manage I/O
--- NOTE | 2019-12-10 19:57 | NUR ---
REPORT RECEIVED FROM EMMA YEN. PT RESTING IN CHAIR, DENIES NEEDS AT THIS TIME.
--- NOTE | 2019-12-10 20:55 | NUR ---
Assessment completed. Pt sitting up in chair, legs elevated. INT to right AC intact, flushes easily. 2+ pitting edema and weeping blisters noted over BLE. Large open sore BLE just outside of knee, both covered with drainage pad. Small white blister noted in center of coccyx. PureWick in place to suction. Firm distended abdomen noted with truncal edema, 1+. Pt denies pain or shortness of air. Inspiratory and expiratory wheezes audible with deep breaths. Will continue to monitor.
[2019-12-11 04:04] VITALS: BP 141/52; PULSE 75; TEMP 97.7
--- NOTE | 2019-12-11 05:05 | NUR ---
Pt sleeping in chair throughout shift. Reports pain in legs around open sores. PRN [place] given once per pt request. Pt in atrial flutter, HR between 40-60 per surveillance monitor. All other vital signs within normal limits.
[2019-12-11 06:00] LABS: BASO % 0.5 % (0.0-2.0); EOS # 0.2 (0.0-0.7); EOS % 4.1 % (0-4.0); GRAN # 3.6 (1.4-6.5); GRAN % 63.2 % (42.2-75.2); HEMOGLOBIN 10.2 g/dl (12.5-16.0); LYMPH # 1.1 (1.2-3.4); LYMPH % 19.3 % (20.0-51.0); MEAN CELL VOLUME 86 fl (80.0-100.0); MEAN CORPUSCULAR HEMOGLOBIN 28 pg (27.0-31.0); MEAN CORPUSCULAR HGB CONC 32 g/dl (33.0-37.0); MEAN PLATELET VOLUME 9.5 fl (7.4-10.4); MONO # 0.7 (0.1-0.6); MONO % 12.7 % (1.7-9.3); PLATELET COUNT 135 K/mm3 (130-400); RED BLOOD COUNT 3.66 M/mm3 (4.10-5.30); REDCELL DISTRIBUTION WIDTH-CV 14.8 % (11.5-14.5)
[2019-12-11 06:07] LABS: PROTHROMBIN TIME 22.5 SECONDS (9.7-12.8)
[2019-12-11 06:09] LABS: HEMATOCRIT 31.6 % (37.0-47.0)
[2019-12-11 06:29] LABS: CALCIUM 8.7 mg/dL (8.4-10.2); CREATININE, serum 1.28 (0.52-1.25); MAGNESIUM 1.8 mg/dL (1.6-2.3); POTASSIUM 3.1 mmol/L (3.4-5.0)
[2019-12-11 07:52] VITALS: BP 129/49; PULSE 78; TEMP 98.2
[2019-12-11 11:37] VITALS: BP 118/47; PULSE 61; TEMP 98.2
[2019-12-11 15:22] VITALS: BP 144/54; PULSE 53; TEMP 98.9
--- NOTE | 2019-12-11 18:16 | NUR ---
Patient has had a good day. Purewick catheter remains in place, patient has remained relatively dry through the day other than when the catether was dislodged and leaked on the floor. Patient is currently in a fresh brief with a fresh darren in the reclined, comfortable with dinner. Leg dressing were changed on both sides, the right open wound is significantly worse then the left. Her pain is located in these areas but is managed with the PRN norco. No further needs were expressed at this time. Call light is in reach.
[2019-12-11 20:18] VITALS: BP 131/67; PULSE 76; TEMP 98.4
--- NOTE | 2019-12-11 22:30 | NUR ---
Pt assessment completed, charted, alert, oriented. Meds provided as per JUN, tolerated well. Legs dressing are dry, intact. Helped settled on bed, call light on reach. No further needs at this time.
[2019-12-11 23:50] VITALS: BP 123/49; PULSE 62; TEMP 97.9
[2019-12-12 05:00] VITALS: BP 114/49; PULSE 55; TEMP 98.4
--- NOTE | 2019-12-12 05:43 | NUR ---
Pt had an uneventful night, slept through out the night. Gave PRN pain meds in the morning around 0530. No further needs at this time.
[2019-12-12 06:41] LABS: BASO % 0.6 % (0.0-2.0); EOS # 0.3 (0.0-0.7); EOS % 5.2 % (0-4.0); GRAN # 3.2 (1.4-6.5); GRAN % 59.9 % (42.2-75.2); LYMPH # 1.1 (1.2-3.4); LYMPH % 20.1 % (20.0-51.0); MEAN CELL VOLUME 85 fl (80.0-100.0); MEAN CORPUSCULAR HEMOGLOBIN 28 pg (27.0-31.0); MEAN CORPUSCULAR HGB CONC 33 g/dl (33.0-37.0); MEAN PLATELET VOLUME 9.9 fl (7.4-10.4); MONO # 0.7 (0.1-0.6); MONO % 13.8 % (1.7-9.3); PLATELET COUNT 141 K/mm3 (130-400); RED BLOOD COUNT 3.55 M/mm3 (4.10-5.30); REDCELL DISTRIBUTION WIDTH-CV 14.7 % (11.5-14.5)
[2019-12-12 06:46] LABS: INR 2.1 (0.8-3.0); PROTHROMBIN TIME 24.2 SECONDS (9.7-12.8)
[2019-12-12 06:51] LABS: HEMATOCRIT 30.3 % (37.0-47.0)
[2019-12-12 06:58] LABS: CALCIUM 8.5 mg/dL (8.4-10.2); CREATININE, serum 1.39 (0.52-1.25)
[2019-12-12 07:07] LABS: POTASSIUM 2.8 mmol/L (3.4-5.0)
[2019-12-12 08:22] VITALS: BP 132/46; PULSE 78; TEMP 98
--- NOTE | 2019-12-12 10:54 | NUR ---
SW met with the patient to review discharge plan. PT is recommending post-acute rehab. SW discussed this with the patient. The patient reports that she is interested in SNF and would prefer 1) [facility] 2) [facility]. SW contacted and faxed a referral to both facilities. SW awaiting their screens. The patient's COVID results are still pending.
[2019-12-12 12:14] VITALS: BP 143/51; PULSE 76; TEMP 98
--- NOTE | 2019-12-12 13:40 | NUR ---
UPDATED SON TODAY ABOUT PATIENT CNDITION AND FUTURE PLAN TO GO INTO REHAB
--- NOTE | 2019-12-12 16:19 | NUR ---
Donald, at [facility], reports that they are not able to accept the patient at this time. SW to inform the patient. SW awaiting Catherine's screen.
[2019-12-12 16:39] VITALS: BP 133/51; PULSE 75; TEMP 98
[2019-12-12 19:52] VITALS: BP 128/46; PULSE 71; TEMP 98.3
[2019-12-12 23:52] VITALS: BP 139/51; PULSE 75; TEMP 98.3
--- NOTE | 2019-12-12 23:56 | NUR ---
Pt assessment completed, charted, alert, oriented, roomair. Meds provided as per MAR, tolertaed well. Helped to settled on recliner with multiple pillows and blanket, call light on reach. No further needs at this time.
[2019-12-13 04:27] VITALS: BP 137/62; PULSE 74; TEMP 97.8
--- NOTE | 2019-12-13 05:07 | NUR ---
Pt had an uneventful night, slept through out the night on recliner. No further needs at this time.
[2019-12-13 07:36] LABS: PROTHROMBIN TIME 22.3 SECONDS (9.7-12.8)
[2019-12-13 07:48] LABS: CALCIUM 8.8 mg/dL (8.4-10.2); CREATININE, serum 1.43 (0.52-1.25); MAGNESIUM 2.1 mg/dL (1.6-2.3)
[2019-12-13 08:05] VITALS: BP 110/55; PULSE 77; TEMP 98.3
--- NOTE | 2019-12-13 11:12 | NUR ---
April, at [facility], reports that they are able to accept the patient for a skilled stay. HIREN met with the patient and updated her on status of referrals. The patient states that she is agreeable to going to [facility]. The patient is to tentatively discharge today, pending COVID results. SW presented and read the IM form outloud to the patient. The patient verbalized understanding and gave SW approval to sign the form on her behalf. HIREN attempted to contact and update the patient's son, Dave. SW left him a voicemail. SW to continue to follow.
[2019-12-13 12:31] VITALS: BP 118/46; PULSE 76; TEMP 98.6
--- NOTE | 2019-12-13 13:10 | NUR ---
The patient's son, Dave, returned HIREN's phone call. Dave is supportive of the patient going to [facility]. HIREN to continue to follow.
--- NOTE | 2019-12-13 13:42 | NUR ---
Attempted to meet with pt for CHF education, but she was just getting up to use the restroom. Will attempt f/u at a later time.
[2019-12-13 15:34] VITALS: BP 135/43; PULSE 74; TEMP 98
--- NOTE | 2019-12-13 15:43 | NUR ---
The patient's COVID results are still pending. Tentative discharge tomorrow, 12/13. HIREN notified and faxed updates to April at [facility]. HIREN attempted to contact the patient's son, Dave, to inform. HIREN left him a voicemail. SW to continue to follow.
--- NOTE | 2019-12-13 16:25 | NUR ---
April, at [facility], reports that they will want to see the patient's psych consult and chemistry tomorrow morning now. SW to continue to follow.
--- NOTE | 2019-12-13 19:13 | NUR ---
12/11/19 covid19 test came back negative.
[2019-12-13 19:34] VITALS: BP 130/49; PULSE 75; TEMP 98
--- NOTE | 2019-12-13 20:45 | NUR ---
Initial shift assessment done- VSS, Tele on-afib, rate controlled. Sitting up in recliner-legs up. Will get a potassium level at 2200 per potassium protocol. Pt states is going to [facility] tomorrow -
[2019-12-13 23:36] VITALS: BP 111/41; PULSE 73; TEMP 98.2
--- NOTE | 2019-12-14 02:30 | NUR ---
Pt assessment completed, charted, roomair, very talkative. Meds provided as per JUN, tolerated well. Dressing over her leg looks dry and intact. Resting on recliner, call light on reach. No further needs at this time.
[2019-12-14 04:00] VITALS: BP 133/42; PULSE 61; TEMP 98.5
--- NOTE | 2019-12-14 05:50 | NUR ---
Pt remains up in chair- pt very talkative, does not stop for other person to even respond- repeating stories of her life, pleasant- wants someone to listen- spent time listening throughout the night-- did fall asleep around 0430 this morning.
[2019-12-14 07:18] LABS: BASO % 0.5 % (0.0-2.0); EOS # 0.3 (0.0-0.7); EOS % 5.3 % (0-4.0); GRAN # 3.4 (1.4-6.5); GRAN % 61.5 % (42.2-75.2); LYMPH # 1.1 (1.2-3.4); LYMPH % 19.3 % (20.0-51.0); MEAN CELL VOLUME 86 fl (80.0-100.0); MEAN CORPUSCULAR HGB CONC 33 g/dl (33.0-37.0); MEAN PLATELET VOLUME 9.6 fl (7.4-10.4); MONO # 0.7 (0.1-0.6); MONO % 12.9 % (1.7-9.3); PLATELET COUNT 147 K/mm3 (130-400); RED BLOOD COUNT 3.53 M/mm3 (4.10-5.30)
[2019-12-14 07:19] LABS: INR 2.2 (0.8-3.0); PROTHROMBIN TIME 24.9 SECONDS (9.7-12.8)
[2019-12-14 07:30] LABS: HEMATOCRIT 30.4 % (37.0-47.0); HEMOGLOBIN 9.9 g/dl (12.5-16.0); MEAN CORPUSCULAR HEMOGLOBIN 28 pg (27.0-31.0)
[2019-12-14 07:31] LABS: CALCIUM 8.7 mg/dL (8.4-10.2); CREATININE, serum 1.39 (0.52-1.25); MAGNESIUM 2.1 mg/dL (1.6-2.3); POTASSIUM 3.6 mmol/L (3.4-5.0)
--- NOTE | 2019-12-14 08:30 | NUR ---
PT IN BED FROM ECHOCARDIOGRAM. PT PLEASANT, REPORTS PAIN IN BLE BUT DID NOT GIVE PAIN RATING ON NUMERIC SCALE. LEG BANDAGES REWRAPPED, PT MEDS GIVEN, ASSESSMENT PERFORMED, VITALS REVIEWED. PT AOX4, BREAKFAST BROUGHT IN. NO OTHER NEEDS AT THIS TIME.
[2019-12-14 09:28] VITALS: BP 124/53; PULSE 73; TEMP 98.2
[2019-12-14 11:34] VITALS: BP 134/46; PULSE 74; TEMP 98.5
--- NOTE | 2019-12-14 13:04 | NUR ---
Initial visit; Patient liked to visit and thanked Senior Benefits Specialist for listening.
--- NOTE | 2019-12-14 13:42 | NUR ---
Follow-up visit; Patient thanked Signing Teacher for returning to offer prayer and God's blessings.
--- NOTE | 2019-12-14 16:34 | NUR ---
The patient's COVID results came back negative. HIREN faxed the results and additional updates to April at [facility]. The patient's psych consult is still pending. April confirms that they will need to see the patient's psych consult tomorrow morning and that the patient's sodium has stayed stable. HIREN attempted to contact the patient's son, Dave, to update. HIREN left him a voicemail and will continue to follow.
--- NOTE | 2019-12-14 18:20 | NUR ---
PT PLEASANT, AOX4, VERY TALKATIVE, WISHES TO TALK TO SON ABOUT NOT TRANSFERRING TODAY. PSYCH DID VISIT PT. BANDAGE CHANGED ON LLE. PT DID TAKE PRN PAIN MEDS FOR BLE. NO OTHER NEEDS AT THIS TIME.
--- NOTE | 2019-12-14 18:31 | NUR ---
LEFT MESSAGE FOR PT SON NOTIFIYING HIM OF LACK OF TRANSFER TODAY.
[2019-12-14 18:38] VITALS: BP 123/93; PULSE 76; TEMP 98.3
[2019-12-14 19:11] VITALS: BP 112/38; PULSE 73; TEMP 98.5
--- NOTE | 2019-12-14 23:30 | NUR ---
Pt assessment completed, charted, roomair. Meds provided as per MAR, tolerated well. Settled on recliner, call light on reach. No further needs at this time.
[2019-12-15 03:13] VITALS: BP 130/50; PULSE 72; TEMP 97.5
--- NOTE | 2019-12-15 05:17 | NUR ---
Pt slept on and off through out the night, complained of pain around 0300 and PRN pain med provided as per JUN, tolerated well. Changed and repositioned on recliner, call light on reach. No further need at this time.
[2019-12-15 07:27] LABS: INR 2.3 (0.8-3.0)
[2019-12-15 08:04] VITALS: BP 130/52; PULSE 73; TEMP 97.8
--- NOTE | 2019-12-15 09:07 | NUR ---
PT PLEASANT, TALKATIVE, AOX4, PROFESSIONAL CASTER EQUAL, LUNG SOUNDS CTA, BS+, VITALS REVIEWED, MEDICATIONS GIVEN, ASSESSMENT PERFORMED. FEMALE EXTERNAL CATHETER DRIAINING CLEAR YELLOW URINE. PT DENIES PAIN AT THIS TIME. POTASSIUM BEING REPLACED. NO FREE WATER, CALLED KITCHEN FOR MORE SUGAR FREE POWERADE. NO OTHER NEEDS AT THIS TIME.
--- NOTE | 2019-12-15 10:33 | NUR ---
PT COMPLAINING OF BLE PAIN AT THIS TIME, PT STATES THAT WOUND ON LLE IS MORE PAINFUL. NORCO GIVEN, PT REPORTS INCONTINENCE. PT WIPED DOWN WITH BATH WIPES, EYAD CARE PROVIDED, BARRIER CREAM APPLIED TO REDDENED AREAS, VJ CHANGED ON CHAIR, PUREWICC CHANGED ON PT. CLEAN GOWN PUT ON. NO OTHER NEEDS AT THIS TIME.
[2019-12-15 12:55] VITALS: BP 146/51; PULSE 61; TEMP 97.9
[2019-12-15 15:49] VITALS: BP 121/47; PULSE 51; TEMP 98.6
--- NOTE | 2019-12-15 16:02 | NUR ---
The patient's sodium level dropped some more this morning. Nephrology was consulted. HIREN notified and faxed the patient's psych eval and updates to April at [facility]. SW contacted and updated the patient's son, Dave. HIREN to continue to follow.
--- NOTE | 2019-12-15 17:01 | NUR ---
PT PLEASANT, TALKATIVE, REPORTS NEEDING ANXIETY MEDICATION, WHEN ATTEMPTED TO GIVE THE PRN MEDICATION PT STATES "OH NO I TAKE THAT AT NIGHT". PT ALSO REPORTS WANTING A PRN INHALER FOR BEING SOB, WHEN TOLD SHE HAS ONE SHE SAID "NO I WANT THE ONE AT MY HOUSE". PT ALSO WANTED SON UPDATED, MESSAGE LEFT REPORTING SHE DID NOT TRANSFER TO [facility] TODAY. NEPHROLOGY CONSULTED, POSSIBLE DC TO [facility] TOMORROW.
--- NOTE | 2019-12-15 19:10 | NUR ---
Received report from Hue. Seen patient awake, sitting in the recliner. She reports mild pain on her knees saying she had a pain pill few hours ago. Call light within reach. With external catheter draining clear, yellow urine. With INT on right AC.
[2019-12-15 19:26] VITALS: BP 136/45; PULSE 60; TEMP 98.4
--- NOTE | 2019-12-15 21:40 | NUR ---
External catheter replaced by Sommer BETANCOURT.
[2019-12-15 23:04] VITALS: BP 133/64; PULSE 69; TEMP 98
--- NOTE | 2019-12-16 00:05 | NUR ---
Patient complains of pain on her knees. [place] PRN given.
[2019-12-16 03:30] VITALS: BP 121/57; PULSE 63; TEMP 97.9
--- NOTE | 2019-12-16 06:18 | NUR ---
Patient had uneventful night. She states she was able to sleep tonight but felt like the sleeping pills is too much for her as she feels groggy. She want to try 1 tablet of Melatonin instead of 2 tablets. She complains of pain on her knees with pain score of 6/10. [place] PRN given.
[2019-12-16 07:11] LABS: BASO % 0.6 % (0.0-2.0); EOS # 0.4 (0.0-0.7); EOS % 7.4 % (0-4.0); GRAN # 2.6 (1.4-6.5); GRAN % 52.5 % (42.2-75.2); LYMPH # 1.3 (1.2-3.4); LYMPH % 26.4 % (20.0-51.0); MEAN CELL VOLUME 87 fl (80.0-100.0); MEAN CORPUSCULAR HGB CONC 33 g/dl (33.0-37.0); MEAN PLATELET VOLUME 9.4 fl (7.4-10.4); MONO # 0.6 (0.1-0.6); MONO % 12.7 % (1.7-9.3); PLATELET COUNT 134 K/mm3 (130-400); RED BLOOD COUNT 3.34 M/mm3 (4.10-5.30); REDCELL DISTRIBUTION WIDTH-CV 14.7 % (11.5-14.5)
[2019-12-16 07:15] LABS: HEMOGLOBIN 9.7 g/dl (12.5-16.0); MEAN CORPUSCULAR HEMOGLOBIN 29 pg (27.0-31.0)
[2019-12-16 07:20] LABS: INR 2.3 (0.8-3.0); PROTHROMBIN TIME 25.7 SECONDS (9.7-12.8)
[2019-12-16 07:29] LABS: ALBUMIN 3.3 gm/dL (3.5-5.0); BILIRUBIN,TOTAL 0.6 mg/dL (0.0-1.0); CALCIUM 8.3 mg/dL (8.4-10.2); CREATININE, serum 1.7 (0.52-1.25); POTASSIUM 4.2 mmol/L (3.4-5.0); TOTAL PROTEIN 6.1 gm/dL (6.4-8.2)
[2019-12-16 08:28] VITALS: BP 133/64; PULSE 71; TEMP 98.6
--- NOTE | 2019-12-16 09:00 | NUR ---
Patient sitting up in the recliner. Complaints of nausea and not wanting to eat breakfast. VSS. Patient A&Ox3. Complaints of pain in legs, pain medication given prior to start of shift. Extenal catheter in place, patient tolerating well. Blister left lower leg, dressing applied and BLE jack wrap. No further needs expressed from the patient. Fall precautions in place. Call light within reach. Chair alarm on
[2019-12-16 13:35] VITALS: BP 121/43; PULSE 58; TEMP 97.8
--- NOTE | 2019-12-16 15:29 | NUR ---
Therapeutic Massage Technician faxed updates to April at [facility]. Will continue to follow.
[2019-12-16 16:00] VITALS: BP 131/72; PULSE 62; TEMP 98.1
--- NOTE | 2019-12-16 16:16 | NUR ---
Salt Maker presented the IM form to the patient. The patient understood and gave verbal consent for SW to sign on her behalf. A copy was provided to the patient and the original was placed in the chart.
--- NOTE | 2019-12-16 18:34 | NUR ---
Patient had an uneventful day. Spent the day sitting in the recliner. A&Ox3. VSS. IV CDI. Patient reports pain in legs and pain medication given when requested. External catheter to intermittent suction, patient tolerating well. Patient tolerating fluid restriction. Nurse instructed patient to elevate legs to help with edema. Patient verbalized an understanding. No further needs expressed from the patient. Call light within reach
[2019-12-16 19:21] VITALS: BP 132/48; PULSE 70; TEMP 98.4
--- NOTE | 2019-12-16 20:00 | NUR ---
Assessment complete at this time. Patient does not complain of pain. Mepilex dressing is changed on left lower extremity wound. Her legs are wrapped bilaterally with jack bandages to reduce swelling. Edema in bilat lower extremities is 2+ pitting. Will continue to monitor.
[2019-12-16 23:39] VITALS: BP 117/57; PULSE 67; TEMP 98.6
[2019-12-17 03:59] VITALS: BP 125/61; PULSE 68; TEMP 98
[2019-12-17 07:52] LABS: BASO % 0.6 % (0.0-2.0); EOS # 0.3 (0.0-0.7); EOS % 5.2 % (0-4.0); GRAN # 3.1 (1.4-6.5); GRAN % 59.9 % (42.2-75.2); HEMOGLOBIN 10.2 g/dl (12.5-16.0); LYMPH # 1.1 (1.2-3.4); LYMPH % 21.7 % (20.0-51.0); MEAN CELL VOLUME 85 fl (80.0-100.0); MEAN CORPUSCULAR HEMOGLOBIN 28 pg (27.0-31.0); MEAN CORPUSCULAR HGB CONC 33 g/dl (33.0-37.0); MEAN PLATELET VOLUME 9.6 fl (7.4-10.4); MONO # 0.6 (0.1-0.6); MONO % 12.2 % (1.7-9.3); PLATELET COUNT 146 K/mm3 (130-400); RED BLOOD COUNT 3.66 M/mm3 (4.10-5.30); REDCELL DISTRIBUTION WIDTH-CV 14.6 % (11.5-14.5)
[2019-12-17 07:55] LABS: HEMATOCRIT 31.2 % (37.0-47.0)
[2019-12-17 08:05] LABS: CALCIUM 8.8 mg/dL (8.4-10.2); CREATININE, serum 1.59 (0.52-1.25); MAGNESIUM 2.1 mg/dL (1.6-2.3); POTASSIUM 4.6 mmol/L (3.4-5.0)
[2019-12-17 08:08] LABS: INR 2.4 (0.8-3.0); PROTHROMBIN TIME 26.6 SECONDS (9.7-12.8)
[2019-12-17 08:22] VITALS: BP 137/53; PULSE 93; TEMP 97.5
--- NOTE | 2019-12-17 08:45 | NUR ---
Patient sitting up in the recliner. Patient incontinent of urine, external catheter in place. Patient tolerating well. VSS. IV CDI. Blister left lower leg, dressing covering. Donovan wrap BLE. Reporting pain in legs, pain medication given as requested. Patient walked with PT and tolerated well. No further needs expressed from the patient. Fall precautions in place. Call light within reach
--- NOTE | 2019-12-17 11:42 | NUR ---
SW met spoke with nurse in regards to potential discharge plan today. Nurse stated that patient would not be going home today, potentially 12/18/2019, but more than likely on 12/19/2019 due to sodium level. Son Dave called and informed of update. SW will continue to follow.
[2019-12-17 12:01] VITALS: BP 125/66; PULSE 73; TEMP 97.7
[2019-12-17 15:52] VITALS: BP 120/47; PULSE 75; TEMP 98
--- NOTE | 2019-12-17 17:31 | NUR ---
Patient had an uneventful day. Sat in the recliner throughout the entire shift. Worked with PT and tolerated well. Complaints of pain in left knee, pain medication given when requested. A&Ox3. VSS. IV CDI. External catheter CDI, low suction. No further needs expressed from the patient. Call light within reach
[2019-12-17 19:11] VITALS: BP 131/54; PULSE 60; TEMP 98.5
--- NOTE | 2019-12-17 19:25 | NUR ---
Sitting in recliner. Assessment complete. Lungs diminshed throughout. Heart sounds normal. Bowels active x4. Pulses present throughtout. Bilateral lower extremity edema +2 with erythema. Dressing in place and CDI. Blister to left lateral leg-covered with dressing. Bilateral posterior upper thighs erythema from sitting in recliner. Patient repositioned and educated on importance of repositioning in recliner. Bilateral arm bruising present. INT right AC flushed without comlications. Reports 6/10 knee pain. Provided with PRN norco at this time. Call light in reach.
[2019-12-17 23:26] VITALS: BP 122/34; PULSE 87; TEMP 98
--- NOTE | 2019-12-17 23:53 | NUR ---
Patient reports 5/10 knee pain. Caspian due at 0130. Patient repositioned. Denies other needs at this time. Call light in reach.
[2019-12-18] VITALS (7 sets, daily range): BP systolic 119–141; BP diastolic 36–56; PULSE 52–83; TEMP 97.8–98.3
--- NOTE | 2019-12-18 01:08 | NUR ---
Reports 8/10 left knee pain. Provided with CRISTO elise.
--- NOTE | 2019-12-18 03:36 | NUR ---
Diastolic BP in 30s. Spoke with Lashonda CORNELL. MAP 60s to 70s. Lashonda dupont with BP. No new orders.
--- NOTE | 2019-12-18 05:49 | NUR ---
Patient required x2 doses of norco for pain control during night. Jeancarlos changed this Am. Otherwise uneventful night. Resting in recliner this AM. Call light in reach.
--- NOTE | 2019-12-18 06:56 | NUR ---
Report given to EMMA Moon
--- NOTE | 2019-12-18 09:13 | NUR ---
Assessment complete. Patient sitting up in recliner, awake and alert, and talking. No complaints of pain at this time. IV site is CD&I, flushed. Patient is aware of her POC at this time. Will continue to monitor. Call light is in reach.
[2019-12-18 09:27] LABS: CALCIUM 9.2 mg/dL (8.4-10.2); CREATININE, serum 1.44 (0.52-1.25); MAGNESIUM 2.1 mg/dL (1.6-2.3)
--- NOTE | 2019-12-18 11:00 | NUR ---
Patient recieved full bed bath, shampoo cap, gown and bed (chair) change. Dressings on both legs were changed and jack wraps were rewrapped as well. External catheter was changed as well as brief. Panis folds were wiped cleaned and desenex was applied, patient did state that it was sore in that area. Patients bottom and back of knees are redded but blanchable. Encouraged patient to sit on a pillow. Placed the pillow closed to the back of her knees to relieve the pressure on the back of her knees. No other needs were expressed at this time,. Call light is in reach.
--- NOTE | 2019-12-18 18:13 | NUR ---
Patient has had a good day. PRN norco was provided for pain. Her son was at the bedside for a good portion of the day. No other complaints or changes. Call light is in reach.
--- NOTE | 2019-12-18 20:00 | NUR ---
Report received, assumed care for operation shift supervisor. Assessment complete. VS stable. A&Ox3-forgetful at times. Denies nausea/shortness of breath. Rating pain 6/10 to bilat lower extremitites and hip-described as constant throbbing. [place] one tab given per dr order. Noted to have coarse crackles to upper lobes bilat/bases bilat diminished. Dressing to left [id number]. Donovan bandages bilat. Right AC INT flushes without difficulty. Plan of care discussed for this shift to include HS meds/calling for needs. Verbalizes understanding. Call light in reach. Will monitor.
--- NOTE | 2019-12-18 20:00 | NUR ---
Report received, assumed care for night auditor. Assessment complete. A&Ox3. VS stable. O2@3L/NC-pursed lip breathing. States he still feels "crummy' but better than when admitted. Upper lung lobes with occasional exp wheeze. Bases bilat diminished. Using urinal without difficulty. UA sent to lab per dr pemberton. Plan of care discussed for this shift to include fluid hydration/steroid admin and RT treatments. Verbalizes undersanding/Denies questions/concerns. Call light in reach/bed alarm on due to high fall risk. Will monitor.
[2019-12-19] VITALS (7 sets, daily range): BP systolic 122–139; BP diastolic 37–62; PULSE 53–78; TEMP 97.6–98.3
--- NOTE | 2019-12-19 00:58 | NUR ---
Called by Maldonado biotechnologist with reports of a flutter with heart rate to low 40s. Chart review shows history of low 40s. Vital signs done by this nurse 125/62, pulse 63, O2 sat 99% on RA, resps 18. Denies any cardiac symptoms. States "my heart rate does that when I sleep." Call light in reach. Will monitor.
--- NOTE | 2019-12-19 04:47 | NUR ---
Rested well this shift. Received norco x1 for pain to lower ext/hip. Slept in recliner. Denied shortness of breath/nausea. Call light in reach. Will monitor.
--- NOTE | 2019-12-19 05:00 | NUR ---
Requesting AM medications now due ot frequent awakenings this shift for tele monitor adjust. GIven per request.
--- NOTE | 2019-12-19 05:39 | NUR ---
Called with c/o pain to right hip/buttock. Rating pain 6/10 on pain scale-described as throbbing. Nocro given per dr pemberton.
[2019-12-19 07:01] LABS: CALCIUM 8.4 mg/dL (8.4-10.2); CREATININE, serum 2.77 (0.52-1.25); MAGNESIUM 1.9 mg/dL (1.6-2.3); POTASSIUM 3.8 mmol/L (3.4-5.0)
--- NOTE | 2019-12-19 09:38 | NUR ---
SUE NOTE: PT AOX4. REPORTS PAIN TO LT LATERAL KNEE, LT HIP AND GENERALIZED "USUALLY A 6/10". WOULD LIKE NORCO WHEN AVAILABLE. LARGE ABSORBANT DRESSING TO WOUND ON LT AND RT LATERAL KNEES/ TOP RUTH WOUNDS ALL DRY AND INTACT. SCANT DRAINAGE UNDER BOTH. FABIAN WRAPS INTACT TO KORY SHINS. DESENEX APPLIED. DENIES COUGH,WHEEZE, STATES EVERYTHING RESOLVED YESTERDAY. ORDERS REVIEWED AND CONFIRMED TO GIVE POTASIUM REPLACMENT PROTOCOL WITH PA. WILL CONT TO MONITOR.
--- NOTE | 2019-12-19 12:37 | NUR ---
Follow up visit from the plant physiology teacher. Chaplain greenyed with patient. No other needs right now.
--- NOTE | 2019-12-19 14:48 | NUR ---
HIREN met with the patient to follow up. The patient reports that she is okay. She states that she starts off feeling well in the morning and then ends up getting bloated. She states that she has not been eating much, because of the bloating. The patient states that she is ready to get to [facility] though. HIREN contacted and faxed updates to April at [facility]. SW to continue to follow.
--- NOTE | 2019-12-19 16:08 | NUR ---
DRESSINGS TO KORY LE CHANGED AND REPLACED. SCANT YELLOW DRAINAGE TO BOTH DRESSINGS. WOUND CLEANED WITH SALINE. SHALLOW. PINK MARGINS. FABIAN WRAPS RE-WRAPPED. LEFT LEG 2+ EDEMA WITH RT LEG 1+ PITTING EDEMA. NO TENDERNESS TO PALPATION. LT WOUND LARGE, SMALL YELLOW CENTER. RT LEG WOUND DOLLAR COIN SIZE WITH PINK BASE AND WELL DEFINED MARGINS. BUTTOCKS UNBLANCHABLE PINK, NO OPEN AREAS. PT REFUSED TO GET INTO BED AND WOULD SIT ON PILLOW IN RECLINER. STATES SHE GETS VERY ANXIOUS WHEN LYING DOWN. EDUCATED ON PRESSURE PREVENTION AND SKIN IMPAIREMENT MAINTENANCE. VERBALIZES UNDERSTANDING. CREAM APPLIED TO BUTTOCKS. DESENEX POWDER APPLIED TO ABD FOLDS AND BLEEDING NOTED TO SOME SPOTS.
[2019-12-19 17:31] LABS: CREATININE, serum 2.38 (0.52-1.25); POTASSIUM 4.7 mmol/L (3.4-5.0)
--- NOTE | 2019-12-19 18:57 | NUR ---
lab called with continued critical chloride of 83. doc aware. new orders this shift. order to cont to monitor
--- NOTE | 2019-12-19 20:00 | NUR ---
Report received, assumed care for shift mechanic. Assessment complete. A&Ox3-drowsy. VS stable. Denies shortness of breath/nausea. Rating pain 4/10 to bilat lower extremities-would like to wait until before bedtime for pain meds. Noted to have excoriation noted to pannus/under breasts/upper thighs. Powder applied. Dressing to left [id number]. Donovan bandages bilat. Plan of care discussed for this shift to include pain management/calling for needs. Verbalizes understanding. Encouraged to lay in bed and get off buttocks as reddened area noted. Refuses stating she cant get comfortable in the bed and has a hard time breathing when laying in bed. Denies concerns. Call light in reach. Will monitor.
--- NOTE | 2019-12-19 21:45 | NUR ---
Called with increased pain level to 6/10 to bilat lower ext-described as throbbing-norco given per dr order. Will monitor.
--- NOTE | 2019-12-20 05:20 | NUR ---
Up out of bed at this time. Iram care done, New pure wick applied. Noted to have redness to bilat thighs as well as buttocks. States under pannus is starting to hurt as well as hip. Mychal given per dr pemberton. Instructed on the importance of getting out of chair and giving buttocks a rest and laying in bed in different positions. Refusing again even after long discussion. Denies any other questions/concerns. Call light in reach. Will monitor.
[2019-12-20 05:32] VITALS: BP 158/52; PULSE 57; TEMP 97.9
[2019-12-20 06:56] LABS: INR 2.1 (0.8-3.0); PROTHROMBIN TIME 23.9 SECONDS (9.7-12.8)
[2019-12-20 07:14] LABS: CALCIUM 8.7 mg/dL (8.4-10.2); CREATININE, serum 2.95 (0.52-1.25); MAGNESIUM 2.1 mg/dL (1.6-2.3); POTASSIUM 4.9 mmol/L (3.4-5.0)
[2019-12-20 07:44] VITALS: BP 127/77; PULSE 88; TEMP 97.8
[2019-12-20 11:27] VITALS: BP 121/48; PULSE 73; TEMP 97.8
--- NOTE | 2019-12-20 13:36 | NUR ---
Attempted to meet with pt for additional CHF education. Pt had CHF Binder on bedside table. Pt very concerned about her current state of health. Reported that she thinks that she is developing PNA. Showed this CM her sputum, which was light yellow in color. She stated that she has been very weak and thinks PNA is settling in. She also mentioned that she has not been sleeping well; she only slept 2.5 hours in the last 2 nights. Reports that she has been having trouble with chills and then overheating. Pt also reports that the who "does her veins" said that the fluid was building up and that they are concerned for UTI. Lastly, she mentioned that her sodium is low, which is why [facility] will not take her. She reports that she recently became a vegetarian at the suggestion of her granddaughter and she thinks that is why her sodium is low. Attempted to redirect pt to CHF education multiple times. Pt repeatedly changed conversation back to another concern. Will attempt to follow up with pt at another time. Pt did request that social work call her son and request that he come visit with her. Request passed along to HIREN Carlson.
--- NOTE | 2019-12-20 15:45 | NUR ---
grocery clerk, Nataly, notified HIREN that the patient requested that her son be called to have him come up here to visit her. SW attempted to contact the patient's son, Dave. HIREN left him a voicemail. HIREN also contacted and faxed updates to April at [facility]. SW to continue to follow.
[2019-12-20 15:57] VITALS: BP 134/45; PULSE 66; TEMP 98.4
--- NOTE | 2019-12-20 18:33 | NUR ---
PATIENT ALERT AND ORIETED. LEFT LOWER LEG WOUND CLEANED, PAT DRY AND REDRESSED THIS SHIFT. SODIUM AT 123, CR 2.95, BUN 73, PT 23.9, CL 84. PATIENT ON FLUID RESTRICTION OF NO FREE WATER. PATIENT REFUSE TO LAY/SIT IN BED, BECAUSE OF ANXIETY OF LOSING STABILITY ON THE BED.
--- NOTE | 2019-12-20 19:30 | NUR ---
Received report from [facility]. Seen patient awake, sitting in the recliner. She is tearful that her son didn't call or visit her. 3% NaCL at 30ml/hr infusing at right forearm. With external catheter draining clear yellow urine. Call light within reach.
[2019-12-20 20:23] VITALS: BP 125/51; PULSE 72; TEMP 98.2
--- NOTE | 2019-12-20 21:55 | NUR ---
Patient complains of pain on her bilateral lower extremities. Pain score of 5/10. [place] PRN given.
--- NOTE | 2019-12-20 22:20 | NUR ---
Changed external catheter and pericare provided.
[2019-12-20 22:43] LABS: ALBUMIN 3.8 gm/dL (3.5-5.0); CALCIUM 8.6 mg/dL (8.4-10.2); CREATININE, serum 2.71 (0.52-1.25); PHOSPHOROUS 3.5 mg/dL (2.5-4.5); POTASSIUM 4.8 mmol/L (3.4-5.0)
--- NOTE | 2019-12-20 23:14 | NUR ---
This nurse called Dr. Verdin regarding lab results of the patient. He ordered to increase the rate of 3% NaCl to 50ml/hr.
[2019-12-21] VITALS (7 sets, daily range): BP systolic 117–143; BP diastolic 48–88; PULSE 70–88; TEMP 97.7–98.9
--- NOTE | 2019-12-21 06:20 | NUR ---
External catheter has been changed again. Patient reports pain on bilateral lower extremities with pain score of 5/10. [place] PRN given.
[2019-12-21 07:21] LABS: PROTHROMBIN TIME 22.2 SECONDS (9.7-12.8)
[2019-12-21 07:24] LABS: HEMOGLOBIN 10.2 g/dl (12.5-16.0); MEAN CELL VOLUME 86 fl (80.0-100.0); MEAN CORPUSCULAR HEMOGLOBIN 29 pg (27.0-31.0); MEAN CORPUSCULAR HGB CONC 33 g/dl (33.0-37.0); MEAN PLATELET VOLUME 9.6 fl (7.4-10.4); PLATELET COUNT 164 K/mm3 (130-400); RED BLOOD COUNT 3.56 M/mm3 (4.10-5.30); REDCELL DISTRIBUTION WIDTH-CV 14.5 % (11.5-14.5)
[2019-12-21 07:29] LABS: HEMATOCRIT 30.5 % (37.0-47.0)
[2019-12-21 07:31] LABS: CALCIUM 8.8 mg/dL (8.4-10.2); CREATININE, serum 2.37 (0.52-1.25); MAGNESIUM 2.3 mg/dL (1.6-2.3); POTASSIUM 4.2 mmol/L (3.4-5.0)
[2019-12-21 07:58] LABS: BAND 4 % (0-10); LYMPHOCYTE 14 % (20.0-51.0); NEUTROPHILS 81 % (42.0-75.2); PLATELET ESTIMATE NORMAL (NORMAL)
--- NOTE | 2019-12-21 08:00 | NUR ---
patient is alert, partially oriented. patient discussing last week incident like it happened yesterday. denies any pain at this time. patient refuse to move from chair to bed. educated patient on potential skin breakdown from sitting down for a long time. patient in chair at this time.
--- NOTE | 2019-12-21 15:36 | NUR ---
The patient may be able to d/c tomorrow. SW notified and faxed updates to April at [facility]. SW to continue to follow.
--- NOTE | 2019-12-21 18:46 | NUR ---
changes was made to insulin. refer to mar for details
--- NOTE | 2019-12-21 21:20 | NUR ---
Pt assessment completed and charted, roomair, talkative pt. Meds provided as per MAR, tolerated well. Helped settled on recliner, calll light on reach. No further needs at this time.
[2019-12-22 03:10] VITALS: BP 126/46; PULSE 76; TEMP 98.8
--- NOTE | 2019-12-22 04:46 | NUR ---
Pt slept on and off through out the night. Pt seems anxious and was complaining of unlicensed people coming to her room and stealing her information. No further needs at this time.
[2019-12-22 07:44] LABS: HEMOGLOBIN 10.8 g/dl (12.5-16.0); MEAN CELL VOLUME 88 fl (80.0-100.0); MEAN CORPUSCULAR HEMOGLOBIN 29 pg (27.0-31.0); MEAN CORPUSCULAR HGB CONC 32 g/dl (33.0-37.0); MEAN PLATELET VOLUME 9.1 fl (7.4-10.4); PLATELET COUNT 247 K/mm3 (130-400); RED BLOOD COUNT 3.79 M/mm3 (4.10-5.30); REDCELL DISTRIBUTION WIDTH-CV 15.3 % (11.5-14.5)
--- NOTE | 2019-12-22 07:45 | NUR ---
IN ROOM TO ASSESS BLOOD SUGAR OF THE PATIENT. PATIENT IS TEARFUL STATING THAT NOBODY IS TAKEN CARE OF HER AND THAT SHE WANTS HER SON TO BUY A CEMETARY PLOT FOR HER.
[2019-12-22 07:46] LABS: HEMATOCRIT 33.3 % (37.0-47.0); INR 2.4 (0.8-3.0)
[2019-12-22 07:50] VITALS: BP 107/48; PULSE 79; TEMP 97.6
[2019-12-22 08:07] LABS: CALCIUM 9.2 mg/dL (8.4-10.2); CREATININE, serum 1.79 (0.52-1.25); POTASSIUM 4.5 mmol/L (3.4-5.0)
[2019-12-22] MEDS ORDERED: ATARAX50 MG PO (08:20)
[2019-12-22] MEDS ORDERED: AMOXICILLIN 8751 TAB PO (08:20)
[2019-12-22] MEDS ORDERED: ATARAX 25MG25 MG/TAB PO (08:20)
[2019-12-22] MEDS ORDERED: DESENEX TP (08:22)
--- NOTE | 2019-12-22 08:48 | NUR ---
IN PATIENT ROOM TO GIVE HER MEDICATIONS. PATIENT WAS EDUCATED THAT SHE IS NOT ALLOWED TO HAVE JUST WATER BECAUSE OF LOW SODIUM. DRINK CHOICES WERE EXPLAINED TO HER
[2019-12-22] MEDS ORDERED: LASIX 20MG TABL20 MG PO (08:58)
[2019-12-22] MEDS ORDERED: LEVEMIR100 U/ML SQ (09:00)
[2019-12-22] MEDS ORDERED: NOVLOG SQ (09:00)
[2019-12-22] MEDS ORDERED: MUCUS RELIEF200 MG PO (09:02)
[2019-12-22] MEDS ORDERED: JANUVIA25 MG PO (09:04)
[2019-12-22] MEDS ORDERED: PREDNISONE20 MG PO (09:09)
[2019-12-22] MEDS ORDERED: NORCO 325 MG-51 TAB PO (09:10)
[2019-12-22] MEDS ORDERED: MIRALAX510G PO (09:20)
--- NOTE | 2019-12-22 09:42 | NUR ---
The patient is to tentatively d/c today. HIREN notified and faxed updates to April at [facility]. SW presented and read the IM form outloud to the patient. The patient verbalized understanding and gave SW approval to sign the form on her behalf. SW attempted to contact the patient's son, Dave, to update. SW left him a voicemail. SW to continue to follow.
[2019-12-22 10:09] LABS: BAND 5 % (0-10); LYMPHOCYTE 2 % (20.0-51.0); METAMYELOCYTE 1 % (0-0); NEUTROPHILS 88 % (42.0-75.2); PLATELET ESTIMATE NORMAL (NORMAL); SCHISTOCYTES 1+
[2019-12-22 10:10] LABS: OVALOCYTES 1+
--- NOTE | 2019-12-22 11:24 | NUR ---
The patient's son, Dave, returned HIREN's phone call. HIREN updated Dave on the d/c plan. Dave is supportive of the plan. HIREN to continue to follow.
[2019-12-22 11:29] VITALS: BP 131/75; PULSE 79; TEMP 98.2
--- NOTE | 2019-12-22 12:17 | NUR ---
PATIENT HELPED TO THE BATHROOM AND IS SITTING IN HER CHAIR WAITING ON LUNCH
--- NOTE | 2019-12-22 12:41 | NUR ---
April, at [facility], reports that they are able to accept the patient today. The patient is to discharge today, 12/21, to [facility] for a skilled stay. Transportation was scheduled at 1400, via [facility]. HIREN informed the patient's RN. SW to inform the patient. SW attempted to contact and inform the patient's son, Dave, of the time. SW left him a voicemail. No additional needs at this time.
--- NOTE | 2019-12-27 14:54 | NUR ---
Attempted to call pt for CHF f/u. No answer but left message requesting return call. Pt was discharged to [facility] at discharged.
== END 2019-12-22 14:07 | DRG 291 ==
LOC: COL.ER 13:45 → MEDICAL 17:17
PROVIDERS: Hospitalist; Internal Medicine; Internal Medicine Nephrology; Nurse Practitioner; Physician Assistant; ADMIT Student in an Organized Health Care Education/Training Program
DX: I13.0 Hypertensive heart and chronic kidney disease with heart failure and stage 1 through stage 4 chronic kidney disease, or unspecified chronic kidney disease (principal); I50.33 Acute on chronic diastolic (congestive) heart failure; N17.9 Acute kidney failure, unspecified; J44.1 Chronic obstructive pulmonary disease with (acute) exacerbation; E87.1 Hypo-osmolality and hyponatremia; L03.116 Cellulitis of left lower limb; I48.92 Unspecified atrial flutter; I27.20 Pulmonary hypertension, unspecified; I48.0 Paroxysmal atrial fibrillation; D64.9 Anemia, unspecified; E78.5 Hyperlipidemia, unspecified; E03.9 Hypothyroidism, unspecified; E11.65 Type 2 diabetes mellitus with hyperglycemia; I25.10 Atherosclerotic heart disease of native coronary artery without angina pectoris; Z66 Do not resuscitate; N18.3 Chronic kidney disease, stage 3 (moderate); I89.0 Lymphedema, not elsewhere classified; F41.1 Generalized anxiety disorder; E66.01 Morbid (severe) obesity due to excess calories
CPT/HCPCS: OP; 99223-AI; 99231-AI; 99232-AI; 99233-AI; J0696; J1815; J1940; J2920; J3370; J7050; J7131